=== PATIENT | female | born 1955 | race Caucasian/White ===

== ENCOUNTER 2017-01-21 16:08 | Inpatient (IN) | payer MEDICAID, MEDICARE ==
[~2017-01-21] VITALS: Ht 165.1 cm; Wt 69.5 kg
[2017-01-21 16:49] LABS: BASOPHIL % 0.4 % (0.0-0.2); EOSINOPHIL # 0.2 10^3/uL (0.0-0.2); LYMPHOCYTES # 1.7 10^3/uL (1.0-4.8); LYMPHOCYTES % 20.5 % (24.0-44.0); MEAN CELL HGB 30.7 pg (26-34); MEAN CELL HGB CONCENTRATION 32.8 g/dL (33-37); MEAN CORP VOLUME 93.4 fL (78-100); MEAN PLATELET VOLUME 10.2 fL (7.8-11.0); MONOCYTES # 0.7 10^3/uL (0.3-0.8); NEUTROPHIL # 5.6 10^3/uL (1.8-7.7); RED CELL DISTRIBUTION WIDTH 14.9 % (11.5-14.5); WHITE BLOOD CELL 8.2 10^3/uL (4.5-11.0)
--- NOTE | 2017-01-21 16:57 | DIREP ---
PROCEDURE:CHEST 1 VIEW COMPARISON:None. INDICATIONS:Medical clearance FINDINGS: LUNGS/PLEURA:Shallow inspiration with crowding of the pulmonary vascular markings. No focal consolidation. No effusions. VASCULATURE:Normal. Unremarkable pulmonary vasculature. CARDIAC:Normal. No cardiac silhouette abnormality or cardiomegaly. MEDIASTINUM:Normal. No visible mass or adenopathy. BONES:Normal. No fracture or visible bony lesion. OTHER:Negative. CONCLUSION:No acute cardiopulmonary abnormalities. Dictated by: Camden Gutierrez M.D. on 01/21/2017 at 04:56 PM
--- NOTE | 2017-01-21 17:06 | ER.PDOC ---
General Chief Complaint: Medical Clearance Stated Complaint: MED CLEAR Time seen by MD: 17:05 Source: senior living records History of Present Illness Initial Comments Medical clearance to go to the [place] for schizophrenia Severity: moderate Associated Symptoms: Angry, Paranoid Past Medical History Medical History: high cholesterol, hypertension, thyroid disease, other Social History Smoking: less than 1 pack/day Alcohol Use: none Drug Use: none Review of Systems Constitutional: no symptoms reported Respiratory: no symptoms reported Cardiovascular: no symptoms reported Gastrointestinal: no symptoms reported Psychiatric/Neurological: see HPI All Other Systems: Reviewed and Negative Physical Exam General Appearance: No acute distress, Alert Neck: Non-Tender, Full Range of Motion, Supple, Normal Inspection Respiratory: chest non-tender, lungs clear, normal breath sounds, no respiratory distress, no accessory muscle use Cardiovascular: Normal Peripheral Pulses, Regular Rate, Rhythm, No Edema, No Gallop, No JVD, No Murmur Gastrointestinal: Normal Bowel Sounds, No Organomegaly, No Pulsatile Mass, Non Tender, Soft Extremities: Non-Tender, Normal Range of Motion, No Evidence of Trauma, No Edema Neurological/Psychiatric: Alert, Normal Mood/Affect Appearance/Memory/Insight: Appropriate Appearance, Appropriate Insight Behavior/Eye Contact/Speech: Cooperative Thoughts/Hallucinations: Paranoid Results/Orders Results/Orders Laboratory Tests Test 01/21/17 16:40 01/21/17 17:30 White Blood Count 8.2 10^3/uL (4.5-11.0) Red Blood Count 4.24 10^6/uL (4.00-5.20) Hemoglobin 13.0 g/dL (12.0-15.0) Hematocrit 39.6 % (36.0-46.0) Mean Corpuscular Volume 93.4 fL (78-100) Mean Corpuscular Hemoglobin 30.7 pg (26-34) Mean Corpuscular Hemoglobin Concent 32.8 g/dL (33-37) Red Cell Distribution Width 14.9 % (11.5-14.5) Platelet Count 250 10^3/uL (150-400) Mean Platelet Volume 10.2 fL (7.8-11.0) Neutrophils (%) (Auto) 68.0 % (41.0-85.0) Lymphocytes (%) (Auto) 20.5 % (24.0-44.0) Monocytes (%) (Auto) 9.0 % (5.0-12.0) Neutrophils # (Auto) 5.6 10^3/uL (1.8-7.7) Lymphocytes # (Auto) 1.7 10^3/uL (1.0-4.8) Monocytes # (Auto) 0.7 10^3/uL (0.3-0.8) Absolute Immature Granulocyte (auto 0.01 10^3 u/L (0-2) Eosinophils % 2.0 % (0.0-5.0) Basophils % 0.4 % (0.0-0.2) Basophils # 0.0 10^3/uL (0.0-0.1) Eosinophil Count 0.2 10^3/uL (0.0-0.2) Prothrombin Time 9.7 SEC (9.8-11.9) Prothromb Time International Ratio 0.9 Activated Partial Thromboplast Time 25.5 SEC (24.67-30.72) Sodium Level 142 mmol/L (132-145) Potassium Level 3.8 mmol/L (3.6-5.2) Chloride Level 105.0 mmol/L (96-109) Carbon Dioxide Level 24.9 mmol/L (20.0-32) Anion Gap 15.9 Blood Urea Nitrogen 11 mg/dL (7-18) Creatinine 1.23 mg/dL (0.59-1.40) Estimated GFR () 53.7 (>/=60) BUN/Creatinine Ratio 8.0 Glucose Level 94 mg/dL (70-110) Hemoglobin A1c 5.3 % (4.2-6.2) Calcium Level 9.4 mg/dL (8.4-10.5) Total Bilirubin 0.3 mg/dL (0.2-1.0) Aspartate Amino Transf (AST/SGOT) 15 U/L (0-35) Alanine Aminotransferase (ALT/SGPT) 13 U/L (12-78) Alkaline Phosphatase 71 U/L (50-136) Total Creatine Kinase 103 U/L (26-192) Creatine Kinase MB 0.6 ng/mL (0.5-3.6) Troponin I < 0.02 ng/mL (0.00-0.05) C-Reactive Protein 0.08 mg/dL (0.00-5.00) Pro-B-Type Natriuretic Peptide 29 pg/mL (0-125) Total Protein 7.8 g/dL (6.4-8.2) Albumin 4.2 g/dL (3.4-5.0) Globulin 3.6 Triglycerides Level 208 mg/dL (20-200) Cholesterol Level 280 mg/dL (120-240) LDL Cholesterol, Calculated 198.4 VLDL Cholesterol 41.6 HDL Cholesterol 40 mg/dL (32-96) Cholesterol Ratio (LDL/HDL) 4.9 Cholesterol/HDL Ratio [id number] Thyroid Stimulating Hormone (TSH) 76.880 mIU/mL (0.358-3.740) Valproic Acid (Depakene) Level < 3 ug/mL (50-100) [place] Level < 0.20 mmol/L (0.6-1.2) Percent Immature Gran (Cell Imm) 0.10 % (0.00-0.50) Urine Collection Type VOID Urine Color YELLOW (YELLOW) Urine Appearance CLEAR (CLEAR) Urine Bilirubin NEGATIVE MG/DL (NEGATIVE) Urine Ketones NEGATIVE (NEGATIVE) Urine Specific [place] 1.010 (1.005-1.035) Urine pH 6.5 (5.0-6.0) Urine Protein NEGATIVE (NEGATIVE) Urine Urobilinogen NORMAL (NEGATIVE) Urine Nitrate NEGATIVE (NEGATIVE) Urine Leukocyte Esterase 25 /uL TRACE (NEGATIVE) Urine Blood NEGATIVE (NEGATIVE) Urine RBC 0-2 RBC/HPF (NONE SEEN) Urine WBC 0-2 WBC/HPF (0-2) Urine Squamous Epithelial Cells FEW #/HPF (FEW) Urine Bacteria NONE SEEN (NONE SEEN) Urine Glucose NORMAL (NEGATIVE) Opiates Screen NEGATIVE (NEGATIVE) Barbiturate Screen NEGATIVE (NEGATIVE) Urine Tricyclic Antidepressants NEGATIVE (NEGATIVE) Phencyclidine (PCP) Screen NEGATIVE (NEGATIVE) Amphetamines Screen NEGATIVE (NEGATIVE) Benzodiazepines Screen NEGATIVE (NEGATIVE) Cocaine Screen NEGATIVE (NEGATIVE) Ur Tetrahydrocannabinol (THC) Scrn NEGATIVE (NEGATIVE) EKG/XRAY/CT/US EKG: NSR XRAY: chest (Nothing acute) Departure Time of Disposition: 18:21 Disposition: 09 ADMITTED INPATIENT Impression: Primary Impression: Hypothyroidism Qualified Codes: E03.9 - Hypothyroidism, unspecified Additional Impression: Schizophrenia, acute Condition: Stable Referrals: JOSE MARTIN MD (PCP) PRIMARY CARE PROVIDER Comments Admitted to Dr. Ramy DE JESUS,MARYSOL Infante MD Jan 21, 2017 17:06
[2017-01-21 17:40] LABS: BILIRUBIN,URINE NEGATIVE (NEGATIVE); UROBILINOGEN,URINE NORMAL (NEGATIVE)
[2017-01-21 17:54] LABS: ALANINE AMINOTRANSFERASE 13 U/L (12-78); ALKALINE PHOSPHATASE 71 U/L (50-136); ASPARTATE AMINO TRANSFERASE 15 U/L (0-35); CALCIUM 9.4 mg/dL (8.4-10.5); CARBON DIOXIDE 24.9 mmol/L (20.0-32); CHOLESTEROL 280 mg/dL (120-240); GLUCOSE 94 mg/dL (70-110); HDL CHOLESTEROL 40 mg/dL (32-96)
[2017-01-21 17:56] LABS: UR BENZODIAZEPINE QUAL NEGATIVE (NEGATIVE); UR COCAINE QUAL NEGATIVE (NEGATIVE)
[2017-01-21 17:57] LABS: APPEARANCE,URINE CLEAR (CLEAR); UA COLOR YELLOW (YELLOW); WBC,URINE 0-2 WBC/HPF (0-2)
--- NOTE | 2017-01-21 18:18 | NUR ---
DR GARCÍA VILLELAA ON PHONE WITH DR MARIANO
--- NOTE | 2017-01-21 18:23 | PRM.ACF1 ---
Date and Time Date and Time Time: 18:22 Admission Criteria Forms PSYCHIATRIC DISORDERS Clinical Indications for Inpatient Care (Place 'X' for any and all applicable criteria): Ongoing inpatient care may be needed for 1 or more of the following(1)(2)(3)(4)( 6)(7)(8): [ x]I. Danger to self or others not manageable at lower level of care. [ ]II. Grave disability (eg, inability to perform self care necessary at lower level of care) [ ]III. Agitation or inappropriate behavior interfering with care for primary condition (eg, attempting to discontinue lines or drains prematurely, unable to cooperate with respiratory care) [ ]IV. Severe disability or disorder indicated by ALL of the following: [ ]a) Severe behavioral health disorder-related symptoms or condition indicated by 1 or more of the following: [ ]i) Severe problem with cognition, memory, judgment, or impulse control [ ]ii) Severe clinical manifestations (eg, hallucinations, delusions, other acute psychotic symptoms, nanette, extreme agitation or anxiety) [ ]b) Patient management at lower level of care is not feasible until acute intervention or modification is initiated. Extended stay beyond goal length of stay for the primary condition may be needed untilALLof the following are present(1)(2)(3)(4)722)(23): [ ]a) Danger to self or others is absent or manageable at lower level of care [ ]b) Behavior crisis management, including physical or chemical restraints, is required and is not available at a lower level of care. [ ]c) Behavioral symptoms (e.g., agitation, somnolence, inappropriate behavior) are present, and are not manageable at a lower level of care. [ ]d) Patient cannot understand follow-up treatment and crisis plan. [ ]e) Provider and supports are sufficiently available at lower level of care. [ ]f) Patient can participate (e.g., verify absence of plan for harm) and is in needed of monitoring. The original [facility] [email or web address] content created by [facility] has been revised. The portions of the content which have been revised are identified through the use of italic text, and [facility] has neither reviewed nor approved the modified material. All other unmodified content is copyright [facility]. Please see references footnoted in the original [facility] edition 2014 MARYSOL DE JESUS MD Jan 21, 2017 18:23
[2017-01-21] MEDS ORDERED: LEVO88TA2 PO (18:38)
[2017-01-21] MEDS ORDERED: LISI-414 PO (18:38)
[2017-01-21] MEDS ORDERED: PRAV40TA2 PO (18:38)
[2017-01-21] MEDS ORDERED: PALI117D IM (18:38)
[2017-01-21] MEDS ORDERED: BENZ0.5T PO (18:38)
--- NOTE | 2017-01-21 18:40 | NUR ---
PLAN OF CARE PT RESTING QUIETLY, RESP EVEN AND UNLABORED, SKIN PINK WARM AND DRY. DENIES ANY CONCERNS. DECLINED OFFER OF SOMETHING TO DRINK.
--- NOTE | 2017-01-21 19:00 | NUR ---
ADMISSION PT ADMITTED VIA WC FROM ER. REPORT RCVD FROM JENNIFER CHOI. PT AMBULATED TO BED. STEADY BALANCE/GAIT NOTED. PT GIVEN A HOSPITAL GOWN AND INSTR. TO CHANGE. PT BECAME VERY AGGRESSIVE AND DEMONSTRATED MARKED MOVEMENTS. PT REMOVED SHIRT, AND PUT GOWN ON. PT REFUSED TO REMOVE BRA OR JEANS. PT PLACED IN BED, VS OBTAINED. VSS STABLE. PT REFUSES TO ANSWER ANY QUESTIONS. ANGRY/DEPRESSED AFFECT NOTED. PT WILL FOLLOW DIRECTIONS IN AN ANGRY MANNER, SUCH FORCIBLY THRUSTING HER ARM OUT WHEN ASKED IF I COULD TAKE HER BP. PT INSTR. TO LIE BACK IN BED, THROWS HERSELF BACK IN A FRUSTRATED MANNER. BED IN LOW LOCKED POSITION, SIDE RAILS UP X2, CALL LIGHT WITHIN REACH.
[2017-01-21 19:35] VITALS: BP 152/94
--- NOTE | 2017-01-22 01:26 | NUR ---
BSC UP TO VOID. VOIDED W/O DIFFICULTY. URINE YELLOW/STRONG ODOR. ICE WATER GIVEN. PT BACK TO BED IN SUP[place] POSITION. DENIES ANY NEEDS.
[2017-01-22 01:47] VITALS: BP 125/63
--- NOTE | 2017-01-22 05:19 | NUR ---
REFUSAL PT REFUSES TO HAVE VS TAKEN. PT STATES "GET OUT" TO ANY QUESTIONS ASKED. WILL ATTEMPT AT A LATER TIME.
--- NOTE | 2017-01-22 06:40 | NUR ---
REPORT GIVEN TO ONCOMING SHIFT
--- NOTE | 2017-01-22 06:40 | NUR ---
REPORT RECEIVED REPORT REVIEWED EMR ASSUMED CARE OF PT
--- NOTE | 2017-01-22 07:45 | NUR ---
BATHROOM PATIENT UP TO BEDSIDE TOILET BY SELF. STEADY GAIT NOTED AMBULATED TO SINK WITH STEADY GAIT TO WASH HANDS BREAKFAST TRAY PROVIDED AT THIS TIME, PATIENT SAT ON THE SIDE OF THE BED TO EAT DENIES FURTHER NEEDS. CALL LIGHT IN REACH PATIENT IN CLOSE PROXIMITY TO NURSES STATION
--- NOTE | 2017-01-22 08:15 | NUR ---
MEDR ROOM OBTAINED AT THIS TIME, 341
--- NOTE | 2017-01-22 08:34 | NUR ---
STATUS PATIENT HAS NO MEDICATIONS ORDERED PATIENT HAS NO IV DR IS AWARE, NO NEW ORDERS RECEIVED AT THIS TIME.
--- NOTE | 2017-01-22 09:50 | NUR ---
ARRIVED ON UNIT PT ARRIVED ON UNIT VIA WHEELCHAIR. PT TRANSFERRED TO BED INDEPENDENTLY. THIS NURSE OBTAINED WATER PITCHER FOR PT. ORIENTED TO ROOM, CALL LIGHT, TV AND BED CONTROLS. PT DENIES ANY NEEDS AT THIS TIME. CALL LIGHT IN REACH. WILL CONT TO MONITOR.
--- NOTE | 2017-01-22 09:51 | NUR ---
TRANSFER TO [facility] VIA WHEELCHAIR ON RA DENIES PAIN OR DISCOMFORT REPORT GIVEN TO STEPH COHN NO QUESTIONS OR CONCERNS AT THIS TIME
[2017-01-22] MEDS ORDERED: SYNTHROID PO STA (09:53)
--- NOTE | 2017-01-22 09:55 | PCM.HP ---
History of Present Illness Reason for Visit: Behavior disturbance History of Present Illness Found to have highly elevated TSH and did not medically clear for the dionna lewis. Travel Hx EBOLA RISK:Travel to/contact w: No Is pt experiencing any Ebola s: No Review of Systems Allergies: Coded Allergies: No Known Allergies (Unverified , 01/21/17) Scheduled Benztropine Mesylate (Benztropine Mesylate), 0.5 MG PO BID, (Reported) Levothyroxine Sodium (Synthroid), 88 MCG PO DAILY, (Reported) Lisinopril (Lisinopril), 5 MG PO DAILY, (Reported) Paliperidone Palmitate (Invega Sustenna), 117 MG IM .monthly, (Reported) Pravastatin Sodium (Pravastatin Sodium), 40 MG PO HS, (Reported) VTE VTE Risk Total Score: 2 VTE Risk Score VTE Risk: Score 0-1 = Low Risk (Aggressive mobilization; early ambulation; no VTE prophylaxis required) Score 2: Moderate Risk (Intermittent/Pneumatic Compression Device OR Lovenox/Heparin/Coumadin) Score 3-4: High Risk (Intermittent/Pneumatic Compression Device AND Lovenox/Heparin/Coumadin) Score > or =5: Highest Risk (Intermittent/Pneumatic Compression Device AND Lovenox/Heparin/Coumadin) VTE VTE Present on Admission: No Currently receiving anticoagul: No VTE Risk Total Score: 2 Exam Vital Signs Vital Signs Date Time Temp Pulse Resp B/P (MAP) Pulse Ox O2 Delivery O2 Flow Rate FiO2 01/22/17 08:23 Room Air 01/22/17 01:47 65 18 125/63 (83) 96 01/21/17 19:35 98.2 Assessment/Plan Assessment/Plan Problems: (1) Hypothyroidism Permanent Comment: Start her on synthroid 100 mcg daily - Monitor her clinically in the ICU Last Edited By: Karina Mccann MD on Dec 09:55 Status: Acute ICD Code: E03.9 - Hypothyroidism, unspecified SNOMED: 25436907 (2) Schizophrenia, acute Status: Acute ICD Code: F20.9 - Schizophrenia, unspecified SNOMED: 60607348 Patient History: Problem Qualifiers (1) Hypothyroidism: Hypothyroidism type: unspecified Qualified Codes: E03.9 - Hypothyroidism, unspecified KARINA MCCANN MD Jan 22, 2017 09:55
[2017-01-22] MEDS ORDERED: COGENTIN ONE (10:19)
[2017-01-22] MEDS ORDERED: SYNTHROID ONE (10:20)
[2017-01-22] MEDS: COGENTIN PO SCH ×2 (10:23→10:31)
--- NOTE | 2017-01-22 10:30 | NUR ---
MEDICATION PT TOOK LEVOTHYROXINE BUT REFUSED THE CONGENTIN.
--- NOTE | 2017-01-22 14:34 | NUR ---
STATUS THIS NURSE CHECKED IN ON PT AND PT WITH HANDS COVERING FACE. WHEN THIS NURSE ASKED PT IF SHE WAS OK AND IF ANYTHING I COULD DO, PT STATED SHE NEEDED ME TO GO GET HER SOME CIGARETTES. THIS NURSE EXPLAINED SMOKING POLICY AT THIS HOSPITAL BUT EXPLAINED TO PT THAT A NICOTINE PATCH COULD BE ORDERED FOR HER. PT STATED SHE DID NOT WANT A PATCH. OBTAINED FOR PT AND PT CONTINUES TO SIT IN CHAIR AND STARING AT FLOOR. CALL LIGHT IN REACH. WILL CONT TO MONITOR.
[2017-01-22 16:00] VITALS: BP 126/75
--- NOTE | 2017-01-22 19:03 | NUR ---
REPORT REPORT RECEIVED CARE ASSUMED
[2017-01-22 20:20] VITALS: BP 109/63
--- NOTE | 2017-01-22 20:45 | NUR ---
AMBULATING PT AMBULATING IN [place] WITHOUT NEED OF ASSIST, DENIES NEED OR PAIN, STATES SHE WOULD LIKE TO LEAVE AT THIS TIME, ABLE TO REDIRECT AT THIS TIME, FLAT AFFECT NOTED
[2017-01-22] MEDS ORDERED: ZOCOR PO SCH (21:00)
[2017-01-23 00:30] VITALS: BP 118/62
--- NOTE | 2017-01-23 02:00 | NUR ---
AMBULATING PT AMBULATING IN [place] WITHOUT NEED OF ASSIST, DENIES NEED OR PAIN, STATES SHE DOES NOT UNDERSTAND WHY HER DR WANTS HER TO STAY IN THIS HOTEL, REORIENTED AT THIS TIME, WILL NEED REINFORCED,
[2017-01-23 05:09] VITALS: BP 111/62
[2017-01-23] MEDS ORDERED: SYNTHROID PO SCH (06:30)
--- NOTE | 2017-01-23 07:11 | NUR ---
REPORT REPORT GIVEN CARE RELINQUISHED
[2017-01-23 07:40] VITALS: BP 130/78
[2017-01-23] MEDS ORDERED: ZESTRIL ONE (07:59)
[2017-01-23] MEDS: COGENTIN PO SCH (08:05)
--- NOTE | 2017-01-23 08:06 | NUR ---
medications AT BEDSIDE WITH MORNING MEDS AND PT REFUSES TO TAKE ANY MEDICATIONS THIS MORNING.
--- NOTE | 2017-01-23 08:17 | PRM.DC ---
Discharge Summary Date of Arrival on Unit: Jan 21, 2017 Reason for Visit: Behavior disturbance and psychosis Scheduled Benztropine Mesylate (Benztropine Mesylate), 0.5 MG PO BID, (Reported) Levothyroxine Sodium (Synthroid), 88 MCG PO DAILY, (Reported) Lisinopril (Lisinopril), 5 MG PO DAILY, (Reported) Paliperidone Palmitate (Invega Sustenna), 117 MG IM .monthly, (Reported) Pravastatin Sodium (Pravastatin Sodium), 40 MG PO HS, (Reported) Course Blood Pressure Systolic: 130 Blood Pressure Diastolic: 78 Blood Pressure Mean: 95 Plan Problems: (1) Schizophrenia, acute Status: Acute ICD Code: F20.9 - Schizophrenia, unspecified SNOMED: [id number] (2) Hypothyroidism Permanent Comment: Start her on synthroid 100 mcg daily - Monitor her clinically in the ICU Last Edited By: Karina Mccann MD on Dec 09:55 Status: Acute ICD Code: E03.9 - Hypothyroidism, unspecified SNOMED: [id number] Discharge Date: Jan 23, 2017 Discharge Disposition: Stable Problem Qualifiers (1) Hypothyroidism: Hypothyroidism type: unspecified Qualified Codes: E03.9 - Hypothyroidism, unspecified KARINA MCCANN MD Jan 23, 2017 08:17
[2017-01-23] MEDS ORDERED: ZESTRIL PO SCH (09:00)
[2017-01-23 10:29] VITALS: BP 130/78
== END 2017-01-23 10:38 | DRG 645 ==
LOC: ER 16:08 → ICU 18:26 → MS 01-22 10:00
PROVIDERS: ADMIT Internal Medicine; ATTEND Internal Medicine
DX: E03.9 Hypothyroidism, unspecified (principal); F20.9 Schizophrenia, unspecified; I10 Essential (primary) hypertension; Z79.899 Other long term (current) drug therapy; E78.00 Pure hypercholesterolemia, unspecified; F29 Unspecified psychosis not due to a substance or known physiological condition
CPT/HCPCS: 36415; 71010; 80053; 80061; 80164; 80178; 80307; 81000; 82550; 82553; 82607; 83036; 83880; 84432; 84439; 84443; 84481; 84484; 85025; 85610; 85730; 86140; 86376; 93005; 99285

== ENCOUNTER 2017-01-23 10:55 | Inpatient (IN) | payer MEDICARE ==
[~2017-01-23] VITALS: Ht 165.1 cm; Wt 70.4 kg
--- NOTE | 2017-01-23 10:50 | NUR ---
Admit Pt ambulated onto unit alongside Juan Diego Black RN. No s/s of distress noted. Pt appears to be agitated, states, "I don't need to be here. Take me back to my room upstairs. Get me out of here!" Pt refuses to have admitting VS obtained, refuses to answer assessment questions, refusing to sign admit paperwork. Pt will not allow nursing staff to take belongings in bag for check-in, refuses to go to day room or pt room. TPC worker present and sitting in front of nurse's station, pt approached worker and stated, "I'm not going with you you fucking bitch! What the hell is this bitch doing here? I'm not going with her." Pt was redirected, informed that TPC worker was not here to see her. States again, "I need to get out of here. I'm not staying here! Get me out!" Standing in ferro with belongings, offered fluids and snack, accepts a soda.
[~2017-01-23 10:55] MED LIST: BENZ0.5T PO; LEVO88TA2 PO; LISI-414 PO; PALI117D IM; PRAV40TA2 PO
--- NOTE | 2017-01-23 11:10 | NUR ---
Dr. Ketan Aceves called and notified of pt arrival to unit and behaviors pt is exhibiting. Received new orders for scheduled Risperdal and Celexa, and PRN Haldol and Ativan, see EMAR.
[2017-01-23] MEDS ORDERED: HALDOL IM PRN (12:30)
[2017-01-23] MEDS ORDERED: HALDOL PO PRN (12:30)
[2017-01-23] MEDS ORDERED: ATIVAN PO PRN (12:30)
[2017-01-23] MEDS: RISPERDAL PO SCH ×4 (12:30→21:00)
[2017-01-23] MEDS ORDERED: ATIVAN IM PRN (12:30)
[2017-01-23 12:40] VITALS: BP 110/67
--- NOTE | 2017-01-23 12:58 | NUR ---
RISPERDAL PT REFUSED RISPERDAL 1MG. RN EXPLAINED TO PT THAT IF COOPERATIVE SHE LEAVES FASTER WHEN PT SAID SHE WAS NOT STAYING AND WANTED DAUGHTER CALLED TO PICK HER UP. RN EXPLAINED SHE WAS ON COURT PAPERS AND COULD NOT LEAVE. PT SAID SHE DID NOT NEED COURT PAPERS SHE WAS NOT STAYING. RN EXPLAINED THAT SHE COULD LEAVE AT THIS TIME.
--- NOTE | 2017-01-23 12:59 | NUR ---
Delusions Pt reports she was angry and yelling [facility] jail d/t someone, either staff or resident, stealing her clothes, toiletries, etc. Became increasingly agitated, raising voice, got up from chair and walked down ferro and into room. Addendum: 01/23/17 at 1300 by STEPH Madera RN Amended: Links added.
--- NOTE | 2017-01-23 13:40 | NUR ---
Behaviors Pt is cooperative with some aspects of assessment @ this time, irritable affect. Pt sitting in chair across from nurse's station, is seen talking quietly. When asked who she was talking to, pt stated, "I'm just mumbling to myself."
--- NOTE | 2017-01-23 14:53 | NUR ---
BEHAVIOR PT IS IN DAYROOM SITTING IN CHAIR TALKING TO SELF OR TO SOMEONE THAT IS NOT THERE. TALKING ABOUT WHAT MAKES YOU THINK I BELONG HERE. I TOLD YOU I DON'T. OTHER OLIVA SITS QUIETLY. REFUSES OFFER OF ANYTHING TO DRINK OR TO EAT.
[2017-01-23] MEDS ORDERED: ZOCOR ONE (18:57)
[2017-01-23] MEDS ORDERED: COGENTIN ONE (18:57)
[2017-01-23 19:00] VITALS: BP 120/67
[2017-01-23] MEDS: ZOCOR PO SCH ×2 (20:59→21:00)
[2017-01-23] MEDS: COGENTIN PO SCH ×2 (20:59→21:00)
--- NOTE | 2017-01-23 21:11 | NUR ---
Medication pt is offered HS medication and explained each one and patient states she does not need cogentin, zocor, and will not take risperdal at all.RN notified of pt refusing HS medication
--- NOTE | 2017-01-23 21:15 | NUR ---
BEHAVIORS RECEIVED IN REPORT FROM ARUN Celis RN THAT IF PT. DOESN'T TAKE HER MEDICATION CONTINUE TO OFFER THEM.. PT. REFUSED MEDICATION AFTER THEY WERE OFFERED SEVERAL TIMES.
[2017-01-24] MEDS ORDERED: SYNTHROID ONE (04:17)
[2017-01-24] MEDS: SYNTHROID PO SCH (06:22)
--- NOTE | 2017-01-24 06:26 | NUR ---
Medication pt awaken and offered AM medication, levothyroxine 88mcg pt states she does not take that milligram and refuses to take medication. RN notified of pt refusing medication
--- NOTE | 2017-01-24 06:39 | NUR ---
MEDICATION PT. REFUSED LEVOTHYROXINE THIS AM. REPORT WILL BE GIVEN TO ONCOMING SHIFT.
[2017-01-24 07:57] VITALS: BP 118/71
[2017-01-24] MEDS: CELEXA PO SCH (08:35)
[2017-01-24] MEDS: COGENTIN PO SCH ×2 (08:35→20:17)
[2017-01-24] MEDS: ZESTRIL PO SCH (08:36)
[2017-01-24] MEDS: RISPERDAL PO SCH ×2 (08:36→20:18)
--- NOTE | 2017-01-24 10:02 | NUR ---
Status Pt is alert and oriented x 3. Has flat affect, uncooperative @ times. Pt denies depressive symptoms, is irritable @ times. Denies hallucinations, but is frequently seen talking to self quietly. Refuses medications and refuses to participate in group activities. Sits in day room, but isolates from staff and peers.
--- NOTE | 2017-01-24 15:18 | NUR ---
GMAS: PT REFUSED TO PARTICIPATE IN ASSESSMENT. WILL TRY AGAIN AT A LATER DATE. Addendum: 01/24/17 at 1519 by Beulah Doan, LENNY, SPECIAL NEEDS TUTOR SW Amended: Links added.
--- NOTE | 2017-01-24 15:19 | NUR ---
MMSE: PT REFUSED TO PARTICIPATE IN ASSESSMENT. PT INVOLUNTARY. Addendum: 01/24/17 at 1520 by Beulah Doan, LENNY, HAND COLLATOR SW Amended: Links added.
--- NOTE | 2017-01-24 15:28 | NUR ---
SYMPTOMATOLOGY EVAL: PT PRESENTED TO THE ER FROM [facility] FOR MEDICAL CLEARANCE DUE TO AGGRESSIVE BEHAVIORS, NONCOMPLIANCE WITH MEDICATIONS OR CARE AND HALLUCINATIONS. FACILITY STAFF REPORTS THAT PT HAS REFUSED MEDICATIONS AND CARE FOR ABOUT TWO WEEKS. PT IS VERBALLY AGGRESSIVE TOWARD STAFF BY SCREAMING AND CURSING WELL YELLING AT THE [place] IN THE FACILITY. PT HAS BEEN INCREASINGLY DISRUPTIVE AND IS HAVING VISUAL HALLUCINATIONS. PT WILL RETURN TO [facility] UPON DISCHARGE. RECOMMENDED INPATIENT TREATMENT ON THE [facility] [place] ON AN INVOLUNTARY STATUS AT THIS TIME. Addendum: 01/24/17 at 1532 by Beulah Doan LMSW, GUERDA APONTE Amended: Links added.
--- NOTE | 2017-01-24 17:00 | NUR ---
VSEE Pt was seen by Dr. Aceves via telemed, no changes @ this time. Pt became agitated during visit and left treatment room, slammed door, and went to sit in day room.
[2017-01-24 19:21] VITALS: BP 105/60
[2017-01-24] MEDS: ZOCOR PO SCH (20:18)
--- NOTE | 2017-01-24 20:18 | NUR ---
HS MEDICATIONS PT REFUSED HS MEDICATIONS. SAID NO NOT TAKING. WAS NOT UGLY ABOUT IT OUT ANGRY ABOUT IT. JUST SAID NO. REPORTED TO RN.
[2017-01-25] MEDS: SYNTHROID PO SCH (05:31)
--- NOTE | 2017-01-25 05:39 | NUR ---
THYROID MEDICATION PT REFUSED THYROID MEDICATION WHEN OFFERED TO HER. PT STATED THAT IT DOES NOT LOOK LIKE HER MEDICATION SHE TAKES. ATTEMPT TO EXPLAIN TO PT THAT IT IS THE SAME MEDICATION IT JUST MAY BE A DIFFERENT COLOR DUE TO A DIFFERENT COMPANY MAKING IT OR JUST DIFFERENT NAME BRAND. PT CONTINUED TO SAY NO. DID NOT GET ANGRY OR UGLY ABOUT IT. JUST POLITELY SAID NO. REPORTED TO RN.
[2017-01-25 07:45] VITALS: BP 119/63
[2017-01-25] MEDS: ZESTRIL PO SCH (09:00)
[2017-01-25] MEDS: COGENTIN PO SCH ×2 (09:00→20:25)
[2017-01-25] MEDS: RISPERDAL PO SCH ×2 (09:00→20:26)
[2017-01-25] MEDS: CELEXA PO SCH (09:00)
--- NOTE | 2017-01-25 17:28 | NUR ---
BEHAVIOR NOTE: Patient has been quiet and would not participate in groups today. No obvious hallucinations noted. No aggressive behavior. Patient continues to refuse all medications.
[2017-01-25 19:04] VITALS: BP 109/56
[2017-01-25] MEDS: ZOCOR PO SCH (20:26)
--- NOTE | 2017-01-25 20:26 | NUR ---
HS MEDS PT REFUSED HS MEDICATIONS. DID NOT GET ANGRY OR UPSET. JUST SAID NO. RN AWARE.
[2017-01-26] MEDS: SYNTHROID PO SCH (04:53)
--- NOTE | 2017-01-26 04:54 | NUR ---
SYNTHROID PT CONTINUES TO REFUSE ALL MEDS. WAS UP TO BATHROOM AND ASKED IF SHE WANTED HER SYNTHROID THIS AM AND SHE STATED NO.
[2017-01-26 07:33] VITALS: BP 110/68
[2017-01-26] MEDS: ZESTRIL PO SCH (07:37)
[2017-01-26] MEDS: COGENTIN PO SCH ×2 (07:37→20:58)
[2017-01-26] MEDS: RISPERDAL PO SCH ×2 (07:37→20:58)
[2017-01-26] MEDS: CELEXA PO SCH (07:37)
--- NOTE | 2017-01-26 14:16 | NUR ---
pt status pt has been cooperative other than not taking medications. Pt watching tv with other pts. will answer questions when asked. pt sitting quietly.
[2017-01-26 19:09] VITALS: BP 108/63
[2017-01-26 19:20] VITALS: BP 108/63
--- NOTE | 2017-01-26 20:46 | PSYCH ---
DATE OF SERVICE: 01/24/2017 ADMISSION PSYCHIATRIC EVALUATION TIME: 3:00-4:00. CHIEF COMPLAINT: Psychotic, agitated, refusing medications, food and water. HISTORY OF PRESENT ILLNESS: The patient is an elderly female admitted from a local custodial and was profoundly psychotic. She carries a diagnosis of schizophrenia. She had active auditory and visual hallucinations which were continuous, agitation, lability and threatening behavior, ideas of reference, thought broadcasting and insertion, paranoia, delusional thoughts, some depressive symptoms as well with depressed mood, disturbed sleep, appetite, energy and concentration. It should be noted this patient is refusing to take any medications including the medicines quite necessary for her hypothyroidism. No food or water intake because she feels these items are poisoned. Quite sick. She is being observed closely and she is being encouraged to participate in groups, therapies and activities. PAST PSYCHIATRIC HISTORY: Significant for schizophrenia for which she is disabled. PAST MEDICAL HISTORY: 1. Hypothyroidism. 2. Hypertension. 3. Hyperlipidemia. ALLERGIES: NO KNOWN DRUG ALLERGIES. FAMILY PSYCHIATRIC HISTORY: None reported at this time. SOCIAL HISTORY: The patient was raised in [place] , children she reports 2, living in a custodial, no employment. She is disabled due to her psychiatric illness. She does smoke and denies use of alcohol. OBJECTIVE: VITAL SIGNS: Temperature 98.3, pulse 70, respirations 18, oxygen saturation 94%, blood pressure 110/71. REVIEW OF SYSTEMS: HEENT: Normal. RESPIRATORY: No shortness of breath, coughing or wheezing. CARDIAC: No chest pain or palpitations. GASTROINTESTINAL: No nausea, vomiting, diarrhea or constipation. GENITOURINARY: No difficulty urinating. MUSCULOSKELETAL: No muscle pain. EXTREMITIES: No swelling or edema. NEUROLOGIC: Normal. ENDOCRINE: Normal. MENTAL STATUS EXAMINATION: Reveals an alert, angry, hostile, female with decreased psychomotor activity. Concentration and memory are intact. Speech and language are normal. Orientation is full. Intelligence is average. Mood assessed as severely depressed. Affect constricted. Insight and judgment are poor. Thought is illogical, positive delusional thought with auditory and visual hallucinations and paranoia. ASSESSMENT AND PLAN: DIAGNOSES: AXIS I: 1. Schizophrenia, paranoid in type with acute exacerbation. 2. Major depressive disorder. AXIS II: Deferred. AXIS III: Refer to past medical history. AXIS IV: Stress of mental illness. AXIS V: Current global assessment of functioning of 20. TREATMENT PLAN: 1. This patient was admitted per the court to the [facility] representing a danger to herself and others. 2. She is being observed closely. 3. She has been placed on medication, which she is refusing at this time including Cogentin 0.5 mg twice a day, Risperdal 1 mg twice a day, Celexa 10 mg a day including Synthroid for her severe hypothyroidism which she is refusing. 4. She is being encouraged to participate in groups, therapies and activities. 5. She will be discharged back to an outpatient setting when it is felt she no longer represents a clear danger to herself or other individuals. Yonny Aceves MD DR: JOHANNA/mallika JOB# [id number]
[2017-01-26] MEDS: ZOCOR PO SCH (20:58)
--- NOTE | 2017-01-26 21:02 | NUR ---
Medication pt refuses HS medication, RN Gustavo Denton is aware
[2017-01-27] MEDS: SYNTHROID PO SCH (05:53)
--- NOTE | 2017-01-27 05:53 | NUR ---
Medication pt refuses a.m. medication. STEPH smith
[2017-01-27] MEDS: CELEXA PO SCH (07:41)
[2017-01-27] MEDS: COGENTIN PO SCH ×2 (07:42→20:22)
[2017-01-27] MEDS: RISPERDAL PO SCH ×2 (07:42→20:23)
[2017-01-27] MEDS: ZESTRIL PO SCH (07:42)
[2017-01-27 07:52] VITALS: BP 104/67
[2017-01-27 18:02] VITALS: BP 94/58
[2017-01-27] MEDS: ZOCOR PO SCH (20:23)
--- NOTE | 2017-01-27 20:23 | NUR ---
Medication pt refused HS Liliana daily RN notified
--- NOTE | 2017-01-27 21:30 | NUR ---
BEHAVIORS PT. ORIENTED TIMES THREE,DENIES DEPRESSION,ANXIETY AND PAIN. DENIES HALLUCINATIONS. ATTENDED GROUP BUT DID NOT INITIATE INTERACTION BUT RESPONDED TO APPROACH.
[2017-01-28] MEDS: SYNTHROID PO SCH (05:46)
--- NOTE | 2017-01-28 05:46 | NUR ---
Medication pt refuses A.M.abimbola Ford RN notified
[2017-01-28 07:43] VITALS: BP 110/69
[2017-01-28] MEDS: ZESTRIL PO SCH (08:37)
[2017-01-28] MEDS: RISPERDAL PO SCH ×2 (08:37→21:00)
[2017-01-28] MEDS: COGENTIN PO SCH ×2 (08:37→21:00)
[2017-01-28] MEDS: CELEXA PO SCH (08:37)
--- NOTE | 2017-01-28 08:40 | NUR ---
AM MEDICATION PT REFUSED AM MEDICATIONS. PT WAS POLITE ABOUT REFUSAL. JUST SAID NO SHE WAS NOT TAKING MEDICATIONS THIS MORNING. ATTEMPTED TO EXPLAIN THAT PT WOULD NOT GET BETTER AND THAT THE SOONER SHE GETS BETTER THE SOONER SHE COULD LEAVE. PT JUST POLITELY SAID FINE. RN NOTIFIED.
--- NOTE | 2017-01-28 09:59 | PNH ---
DATE: 01/27/2017 PSYCHIATRIC PROGRESS NOTE TIME: 4:20-4:40. HISTORY OF PRESENT ILLNESS: This patient is an elderly female admitted from the prison with a diagnosis of schizophrenia acute with acute exacerbation. The patient admitted with auditory and visual hallucinations, delusional thought, agitation, lability, assaultiveness, thought broadcasting, thought insertion, ideas of reference, paranoia with clear delusional thought. Also, depressive symptoms with depressed mood, disturbed sleep, appetite, energy and concentration. The patient not consuming food, no fluid and refusing all medications including medications which would be very necessary for hypothyroidism. The patient remains quite symptomatic, psychotic, delusional at this time and is a candidate for ongoing hospitalization, may require that this patient go to [facility] if she continues to refuse all medications. OBJECTIVE: VITAL SIGNS: Blood pressure 104/67, pulse 68, respirations 18, temperature 98.2, oxygen saturation 94%. REVIEW OF SYSTEMS: HEENT: Normal. RESPIRATORY: No shortness of breath, coughing or wheezing. CARDIAC: No chest pain or palpitations. GASTROINTESTINAL: No nausea, vomiting, diarrhea or constipation. GENITOURINARY: No difficulty with urination. MUSCULOSKELETAL: No muscle pain. EXTREMITIES: No swelling or edema. NEUROLOGIC: Normal. ENDOCRINE: Normal. MENTAL STATUS EXAMINATION: Reveals an alert female. Decreased psychomotor activity. Concentration and memory intact. Speech and language are normal. Orientation is full. Intelligence is average. Mood assessed as depressed. Affect constricted. Insight and judgment are poor. Thought is illogical, positive delusional thought with active auditory and visual hallucinations. ASSESSMENT AND PLAN: DIAGNOSES: AXIS I: 1. Schizophrenia. 2. Major depressive disorder, severe. AXIS II: Deferred. AXIS III: Refer to past medical history. AXIS IV: Stress of mental illness. AXIS V: Current global assessment of functioning of 20. TREATMENT PLAN: 1. This patient was admitted involuntarily to [facility] representing a danger or risk to herself and others. 2. She has been placed on medication, which she is refusing at this point of Cogentin 0.5 twice a day, Risperdal 1 mg twice a day, Celexa 10 mg a day and Synthroid. 3. She is to participate in groups, therapies and activities which she is not doing at this point based on her level of psychosis. 4. She will be discharged back to a prison setting when it is felt she no longer represents a risk or danger to herself or others. 5. State hospitalization may be a possibility if the patient continues to refuse all medications. Yonny Aceves MD DR: JOHANNA/mallika JOB# [id number]
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
--- NOTE | 2017-01-28 13:16 | NUR ---
Status Pt is alert and oriented x 3, has flat but cooperative affect. Pt will sit in for group activities, but does not actively participate in group activities or initiate interaction, but does respond when approached. Denies depression, anxiety, suicide ideation, homicide ideation, paranoia, and hallucinations. Pt has been seen sitting in recliner and mumbling under her breath and smiling with eyes closed, unable to determine whether or not pt is having auditory hallucinations. No delusions exhibited @ this time. Pt continues to refuse all medications, Dr. Aceves and Dr. Mccann aware.
[2017-01-28 19:27] VITALS: BP 106/60
[2017-01-28] MEDS: ZOCOR PO SCH (21:00)
--- NOTE | 2017-01-28 21:21 | NUR ---
Medication pt refuses HS meds Bobbi RN is aware
--- NOTE | 2017-01-29 01:40 | PRM.ACF1 ---
Admission Criteria Forms PSYCHIATRIC DISORDERS Clinical Indications for Inpatient Care (Place 'X' for any and all applicable criteria): Ongoing inpatient care may be needed for 1 or more of the following(1)(2)(3)(4)( 6)(7)(8): [ ]I. Danger to self or others not manageable at lower level of care. [ ]II. Grave disability (eg, inability to perform self care necessary at lower level of care) [X]III. Agitation or inappropriate behavior interfering with care for primary condition (eg, attempting to discontinue lines or drains prematurely, unable to cooperate with respiratory care) [ ]IV. Severe disability or disorder indicated by ALL of the following: [ ]a) Severe behavioral health disorder-related symptoms or condition indicated by 1 or more of the following: [ ]i) Severe problem with cognition, memory, judgment, or impulse control [ ]ii) Severe clinical manifestations (eg, hallucinations, delusions, other acute psychotic symptoms, nanette, extreme agitation or anxiety) [ ]b) Patient management at lower level of care is not feasible until acute intervention or modification is initiated. Extended stay beyond goal length of stay for the primary condition may be needed untilALLof the following are present(1)(2)(3)(4)(722)(23): [ ]a) Danger to self or others is absent or manageable at lower level of care [ ]b) Behavior crisis management, including physical or chemical restraints, is required and is not available at a lower level of care. [ ]c) Behavioral symptoms (e.g., agitation, somnolence, inappropriate behavior) are present, and are not manageable at a lower level of care. [ ]d) Patient cannot understand follow-up treatment and crisis plan. [ ]e) Provider and supports are sufficiently available at lower level of care. [ ]f) Patient can participate (e.g., verify absence of plan for harm) and is in needed of monitoring. The original [facility] content created by [facility] [employer] has been revised. The portions of the content which have been revised are identified through the use of italic text, and [facility] [employer] has neither reviewed nor approved the modified material. All other unmodified content is copyright [facility] [employer]. Please see references footnoted in the original [facility] edition 2015 Is [facility]/Jason's added/comple: YES ANTONETTE SAAVEDRA CDS Jan 29, 2017 01:40
[2017-01-29] MEDS: SYNTHROID PO SCH (06:13)
--- NOTE | 2017-01-29 06:21 | NUR ---
A.M.Medication pt refuses a.m. medication and Bobbi CHOI is made aware.
[2017-01-29 07:26] VITALS: BP 95/65
[2017-01-29] MEDS: RISPERDAL PO SCH ×2 (09:00→19:52)
[2017-01-29] MEDS: COGENTIN PO SCH ×2 (09:00→19:51)
[2017-01-29] MEDS: ZESTRIL PO SCH (09:00)
[2017-01-29] MEDS: CELEXA PO SCH (09:00)
--- NOTE | 2017-01-29 09:15 | NUR ---
MEDICATIONS PT REFUSED AM MEDS THIS MORNING. RN AWARE.
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
--- NOTE | 2017-01-29 18:21 | NUR ---
BEHAVIOR NOTE: Patient continues to believe that she is not sick and that she does not need medication. She is refusing all medications and refusing showers
[2017-01-29 19:00] VITALS: BP 102/61
[2017-01-29] MEDS: ZOCOR PO SCH (19:52)
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
[2017-01-30] MEDS: SYNTHROID PO SCH (06:13)
[2017-01-30 07:45] VITALS: BP 112/76
[2017-01-30] MEDS: CELEXA PO SCH (08:04)
[2017-01-30] MEDS: ZESTRIL PO SCH (08:04)
[2017-01-30] MEDS: COGENTIN PO SCH ×2 (08:04→20:09)
[2017-01-30] MEDS: RISPERDAL PO SCH ×2 (08:04→20:10)
--- NOTE | 2017-01-30 17:05 | NUR ---
BEHAVIOR NOTE: Patient is not taking any medication and continues to believe that she is not sick and that she does not need medication. She has particpated in groups. She has been pleasant and has sat silently not initiating conversations. She has not been aggressive and there have not been any obvious hallucinations auditory or visual.
[2017-01-30 19:00] VITALS: BP 102/50
[2017-01-30] MEDS: ZOCOR PO SCH (20:10)
--- NOTE | 2017-01-31 00:56 | NUR ---
BEHAVIORS PT. ORIENTED TIMES THREE AND DENIES DEPRESSION,ANXIETY AND PAIN TONIGHT. NO AGGRESSION OR HALLUCINATIONS EXHIBITED. PT. REFUSED MEDICATIONS TONIGHT.
--- NOTE | 2017-01-31 02:59 | NUR ---
behaviors Pt. was observed talking to someone not there which sounded as if scolding someone.
[2017-01-31] MEDS: SYNTHROID PO SCH (06:28)
[2017-01-31 08:00] VITALS: BP 107/56
[2017-01-31] MEDS: RISPERDAL PO SCH ×2 (09:00→20:31)
[2017-01-31] MEDS: ZESTRIL PO SCH (09:00)
[2017-01-31] MEDS: CELEXA PO SCH (09:00)
[2017-01-31] MEDS: COGENTIN PO SCH ×2 (09:00→20:31)
--- NOTE | 2017-01-31 11:55 | NUR ---
Status Pt is alert and oriented x 3. Has flat, but pleasant affect. Does not initiate interaction, but does respond appropriately when approached. Will stay and sit in day room and participate in activities if approached, but otherwise does not speak to staff or other pts. Cont to refuse medications, is seen talking to self, but denies it when asked by staff. Otherwise, pt denies depressive symptoms, anxiety, suicidal ideation, and homicidal ideation.
--- NOTE | 2017-01-31 16:30 | NUR ---
VSEE Pt was seen by Dr. Aceves via telemed, no new orders received @ this time. Dr. Aceves spoke to pt regarding non-compliance with meds, and informed pt that she will be started on either Invega or Haldol Decanoate, pt became agitated and left treatment room. Sat in day room, tapping foot quickly, and biting bottom lip. No other behaviors noted @ this time.
[2017-01-31 19:44] VITALS: BP 107/61
[2017-01-31] MEDS: ZOCOR PO SCH (20:31)
--- NOTE | 2017-01-31 21:58 | NUR ---
Medication pt refuses her HS medication and goes to her room. Bobbi CHOI notified of pt refusing medication
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
--- NOTE | 2017-02-01 06:07 | NUR ---
Medication pt refused A.M.medication and RN notified
[2017-02-01] MEDS: SYNTHROID PO SCH (06:18)
[2017-02-01 07:40] VITALS: BP 108/58
--- NOTE | 2017-02-01 08:01 | NUR ---
Status Pt is A&O x 3, has pleasant affect. Will sit in day room and participate in group activities, but is reserved and only interacts when approached by staff or peers. Pt has not been a behavioral problem, but cont to refuse all medications, including medication for hypothyroidism. Pt has not been disruptive or threatening, but when becomes upset or angry, pt removes self from situation.
[2017-02-01] MEDS: COGENTIN PO SCH (09:00)
[2017-02-01] MEDS: RISPERDAL PO SCH (09:00)
[2017-02-01] MEDS: ZESTRIL PO SCH (09:00)
[2017-02-01] MEDS: CELEXA PO SCH (09:00)
[2017-02-01 19:00] VITALS: BP 104/62
[2017-02-01] MEDS: ZOCOR PO SCH (21:00)
--- NOTE | 2017-02-02 09:27 | PRM.PN ---
Mood: UP AND DOWN, GUARDED Sleep: SLEEPING OK AT NIGHT, SLEPT 7 HOURS LAST NIGHT Appetite: NORMAL APPETITE Suidical thoughts: NONE REPORTED Homicidal thoughts: NONE REPORTED Recent stressors: STRESS OF MENTAL ILLNESS, REFUSING MEDICATIONS Family support: LIMITED Aggressive Behavior: NONE REPORTED Ability to Perform ADL'sc: NEEDS SOME ASSISTANCE Psychotic sympstoms: HALLUCINATIONS, PARANOIA, DELUSIONS Manic Symptoms: NONE REPORTED Living situation: LIVES AT [facility] Illicit Drug usec: NONE REPORTED Alcoholo use: NONE REPORTED Tobacco use: NONE REPORTED Family,PT,Surgical,&Current HX: Anxity Symptoms: MODERATE ANXIETY LEVEL Anger/Irritablility: LIMITED ANGER AND IRRITABILITY Muscle Strength & Tone: WNL Gait & Station: WNL Appearance: Well groomed/hygience, Casual attire, Normal weight, Appears age stated Attitude & Behaviour: Uncooperative, Poor eye contact, Psychomotor retardation Mood & Affect: Flat, Blunted, Depressed Orientation: Fully oriented per interv Attention/Concentration: Fair attention, Fair concentration Speech: Reg rate/vol/rhyth/prosod Judgement/Insight: Poor judgement, Poor insight Thought Process: Loose, Tangential Language: Angolan Thought content/Abnormal/Psych: A/V Vaughan, Delusions Fund of Knowledge: Other Associations: EVA Memory (recent and remote): Recent memory repaired, Remote memory repaired Constitutional: None Neurological: None Psychiatric: Depressed, Anxious, Psychosis Aurora I: SCHIZOPHRENIA; GENERALIZED ANXIETY DISORDER, DEPRESSION Aurora II: DEFERRED Aurora III: REFER TO PMH/MEDICAL CHART Aurora IV: STRESS OF MENTAL ILLNESS Aurora V: GAF=25 Assessment/Plan Assessment/Plan Assessment/Plan First Vital Signs Date Time Temp Pulse Resp B/P (MAP) Pulse Ox O2 Delivery O2 Flow Rate FiO2 01/23/17 12:40 97.2 78 18 110/67 (81) 92 Room Air Last Vital Signs Date Time Temp Pulse Resp B/P (MAP) Pulse Ox O2 Delivery O2 Flow Rate FiO2 02/01/17 19:00 97.0 64 20 104/62 (76) 97 Room Air THE PATIENT WAS SEEN BY DR. LAW VIA TELEMEDICINE EQUIPMENT (VSEE) ALONG WITH THE TREATMENT TEAM. THE PATIENT CAME FROM [facility] IN [place], [place]. SHE WAS REFUSING HER MEDICATIONS AND NOT CARING FOR HERSELF PROPERLY. SHE HAS A HISTORY OF SCHIZOPHRENIA. SHE IS FOLLOWED BY DR. KARMEN REEVES AT [facility]. DR. LAW SPOKE WITH THE FACILITY AND THEY REPORTED THAT THE PATIENT RECEIVED INVEGA SUSTENA 117MG IM ON 12/22/16 AT 8AM. THE PATIENT IS GUARDED. SHE LEFT THE INTERVIEW ROOM WHEN I ASKED HER IF SHE WOULD TAKE HER MEDICATIONS. ASSESSMENT: SCHIZOPHRENIA; GENERALIZED ANXIETY DISORDER; DEPRESSION PLAN: 1) CONTINUE [facility] [place] MANAGEMENT. 2) DISCONTINUE RISPERDAL. START ZYPREXA ZYDIS 10MG PO QHS. CONTINUE OTHER MEDICATIONS AT CURRENT DOSES. STAFF AGREEABLE WITH THE PLAN. THE PATIENT WAS ENCOURAGED TO TAKE HER MEDICATIONS. TODAY'S VITAL SIGNS: TEMP.97.4, PULSE=57, RESP.=16, BP=93/63, O2 SAT WAS 94% ON RA. Problems: (1) Schizophrenia Status: Chronic ICD Code: F20.9 - Schizophrenia, unspecified SNOMED: [id number] Patient History: Unknown 32 MOTHER 33 FATHER 19 CHILD 19 CHILD Problem Qualifiers (1) Schizophrenia: Schizophrenia type: paranoid schizophrenia Qualified Codes: F20.0 - Paranoid schizophrenia MOUNIKA LAW IV, MD Feb 02, 2017 09:27
[2017-02-02] MEDS: ZYPREXA ZYDIS SL SCH (21:00)
[2017-02-02] MEDS: ZOCOR PO SCH (21:00)
[2017-02-03] MEDS: SYNTHROID PO SCH (06:30)
[2017-02-03 07:30] VITALS: BP 114/65
[2017-02-03] MEDS: ZESTRIL PO SCH (09:00)
[2017-02-03] MEDS: COGENTIN PO SCH (09:00)
[2017-02-03] MEDS: CELEXA PO SCH (09:00)
--- NOTE | 2017-02-03 17:31 | NUR ---
Behavior note: Patient is alert and oriented x3. She has sat quietly in the day room and does not initiate conversations but will answer questions. Patient continues to think that she does not need medications for her psychiatric problems and is NOT taking any of her medications at this time.
[2017-02-03 19:28] VITALS: BP 122/60
[2017-02-03] MEDS: ZYPREXA ZYDIS SL SCH (21:00)
[2017-02-04] MEDS: SYNTHROID PO SCH (05:51)
[2017-02-04 07:41] VITALS: BP 108/66
[2017-02-04] MEDS: CELEXA PO SCH (08:22)
[2017-02-04] MEDS: COGENTIN PO SCH ×2 (08:22→20:00)
[2017-02-04] MEDS: ZESTRIL PO SCH (08:23)
[2017-02-04] MEDS: ZOCOR PO SCH ×2 (08:24→20:00)
--- NOTE | 2017-02-04 08:25 | NUR ---
AM MEDS PT REFUSED MEDS THIS AM. WAS NOT UGLY ABOUT REFUSAL. JUST POLITELY REFUSED.
[2017-02-04] MEDS: ZYPREXA ZYDIS SL SCH (20:00)
[2017-02-04 20:21] VITALS: BP 129/63
--- NOTE | 2017-02-04 21:12 | NUR ---
BEHAVIORS PT. ORIENTED TIMES THREE AND DENIES DEPRESSION,ANXIETY AND PAIN. DENIES HALLUCINATIONS TONIGHT. ATTENDED GROUP AND ATE SNACKS. DID NOT INITIATE INTERACTION BUT RESPONDED TO APPROACH. PT. REFUSED HS MEDICATIONS TONIGHT.
[2017-02-05] MEDS: SYNTHROID PO SCH (06:15)
--- NOTE | 2017-02-05 06:38 | NUR ---
Medication Pt refused Levothyroxine 88mcg po. Pt asked dosage of med and was told, Pt then reports "Thats not enough, I wont take it. "
[2017-02-05 07:26] VITALS: BP 129/63
[2017-02-05 07:36] VITALS: BP 105/65
--- NOTE | 2017-02-05 08:24 | PRM.PN ---
Mood: UP AND DOWN, VERY GUARDED Sleep: SLEPT 8.25 HOURS LAST NIGHT Appetite: NORMAL APPETITE Suidical thoughts: NONE REPORTED Homicidal thoughts: NONE REPORTED Recent stressors: STRESS OF MENTAL ILLNESS Family support: DAUGHTER IN [place] Aggressive Behavior: NONE REPORTED Ability to Perform ADL'sc: YES, SHOWERING EVERY FEW DAYS Psychotic sympstoms: PARANOID, DELUSIONAL, HALLUCINATIONS, ODD THINKING Manic Symptoms: NONE REPORTED Living situation: LIVES AT [facility] Illicit Drug usec: NONE REPORTED Alcoholo use: NONE REPORTED Tobacco use: NONE REPORTED Family,PT,Surgical,&Current HX: Anxity Symptoms: MODERATE ANXIETY LEVEL Anger/Irritablility: PROBLEMS WITH ANGER AND IRRITABILITY Muscle Strength & Tone: WNL Gait & Station: WNL Appearance: Well groomed/hygience, Casual attire, Normal weight, Appears age stated Attitude & Behaviour: Uncooperative, Poor eye contact, Psychomotor agitation Mood & Affect: Iabile, Blunted, Angry Orientation: Disoriented to place, Disoriented to time, Disoriented to situation Attention/Concentration: Fair attention, Fair concentration Speech: Reg rate/vol/rhyth/prosod Judgement/Insight: Poor judgement, Poor insight Thought Process: Linear/goal directed Language: Lithuanian Thought content/Abnormal/Psych: A/V Vaughan, Delusions Fund of Knowledge: Other Associations: EVA Memory (recent and remote): Gross int/not form assess Constitutional: None Neurological: None Psychiatric: Depressed, Anxious, Psychosis [place] I: SCHIZOPHRENIA, PARANOID TYPE; VERONIKA [place] II: DEFERRED [place] III: REFER TO PMH/MEDICAL CHART [place] IV: STRESS OF MENTAL ILLNESS [place] V: GAF=25 Assessment/Plan Assessment/Plan Assessment/Plan First Vital Signs Date Time Temp Pulse Resp B/P (MAP) Pulse Ox O2 Delivery O2 Flow Rate FiO2 01/23/17 12:40 97.2 78 18 110/67 (81) 92 Room Air Last Vital Signs Date Time Temp Pulse Resp B/P (MAP) Pulse Ox O2 Delivery O2 Flow Rate FiO2 02/05/17 07:36 97.7 72 16 105/65 (78) 97 Room Air THE PATIENT WAS SEEN FACE TO FACE BY DR. LAW ALONG WITH THE TREATMENT TEAM. THE PATIENT WAS GUARDED DURING THE INTERVIEW. THE PATIENT IS REFUSING HER MEDICATIONS. THE PATIENT WAS ANGRY DURING THE INTERVIEW TODAY. THE PATIENT IS A POOR HISTORIAN. SHE DOES NOT THINK SHE HAS A MENTAL ILLNESS. THE PATIENT GETS ANGRY WHEN IT IS SUGGESTED THAT SHE HAS SCHIZOPHRENIA. THE PATIENT IS SHOWERING EVERY OTHER DAY PER STAFF. SHE DOES NOT KNOW THE DATE. SHE DOES NOT UNDERSTAND THE SITUATION. SHE HAS ODD AND DELUSIONAL THINKING. THE PATIENT PROBABLY HAS AUDITORY HALLUCINATIONS. SHE LAUGHS INAPPROPRIATELY. ASSESSMENT: SCHIZOPHRENIA, PARANOID TYPE; GENERALIZED ANXIETY DISORDER PLAN: 1) CONTINUE [facility] MANAGEMENT. 2) START INVEGA SUSTENNA 156MG IM TODAY. CONTINUE OTHER MEDICATIONS AT OTHER DOSES. STAFF AGREEABLE WITH THE PLAN. Problems: (1) Schizophrenia Status: Chronic ICD Code: F20.9 - Schizophrenia, unspecified SNOMED: [id number] Patient History: Unknown 32 MOTHER 33 FATHER 19 CHILD 19 CHILD Problem Qualifiers (1) Schizophrenia: Schizophrenia type: paranoid schizophrenia Qualified Codes: F20.0 - Paranoid schizophrenia MOUNIKA LAW IV, MD Feb 05, 2017 08:24
[2017-02-05] MEDS: COGENTIN PO SCH ×2 (08:34→20:02)
[2017-02-05] MEDS: ZESTRIL PO SCH (08:34)
[2017-02-05] MEDS: CELEXA PO SCH (08:34)
--- NOTE | 2017-02-05 08:35 | NUR ---
AM MEDICATIONS PT REFUSED AM MEDICATIONS. WAS POLITE AND JUST SAID DID NOT WANT TO TAKE. RN AWARE.
[2017-02-05] MEDS ORDERED: NON-FORMULARY MEDICATION 1 EA EA IM ONE (09:00)
--- NOTE | 2017-02-05 09:52 | NUR ---
INVEGA INJECTION DR LAW BROUGHT THE INVEGA 156MG SAMPLE INJECTION TO BE GIVEN TO PT THIS AM. PT WAS ASKED TO GO TO HER ROOM. RN EXPLAINED THAT DR LAW ORDERED HER INJECTION BEEN GIVEN TO HER. PT DID NOT WANT TO HAVE THE INJECTION. RN EXPLAINED INJECTION CAN BE GIVEN IN ARM JUST LIKE A FLU SHOT. ELECTRIC BRAIN WAVE EQUIPMENT MECHANIC ADMINISTERED INJECTION IN LEFT DELTOID WITHOUT ANY DIFFICULTY FROM PT. PT JUST STOOD THERE AND ALLOWED INJECTION TO BE GIVEN. PT THEN WENT AND LAID DOWN ON THE BED. ELECTRIC BRAIN WAVE EQUIPMENT MECHANIC WENT AND EXPLAINED TO DR LAW IN THE CONFERENCE ROOM THAT INJECTION WAS GIVEN AND THAT PT JUST STOOD THERE AND LET US. DID SAY SHE DID NOT WANT IT BUT DID TAKE THE INJECTION. WHEN WENT IN TO CHECK ON PT SHE WAS LAYING IN BED QUIETLY. DENIED ANY NEEDS AT THAT TIME.
--- NOTE | 2017-02-05 10:48 | NUR ---
Tx team Pt was seen by Dr. Alaniz and tx team this A.M. Pt continues to have poor insight and denies hallucinations despite being seen by several staff members talking to self in chair. Pt denies depressive symptoms, denies paranoia. When asked how her mood was, stated, "It's been good." Pt became irritable when told by Dr. Alaniz that we were treating her for mental health concerns, pt stated, "I was originally diagnosed with schizophrenia, but I don't have mental health problems." States, "I'm tired of the bull shit." When asked what she meant, pt stated, "The schizophrenia bullshit." Pt left treatment room and went to day room. Pt was given IM Invega per Dr. Alaniz's orders, did not become combative with staff during admin.
[2017-02-05 19:00] VITALS: BP 102/61
[2017-02-05] MEDS: ZYPREXA ZYDIS SL SCH (20:03)
[2017-02-05] MEDS: ZOCOR PO SCH (20:03)
--- NOTE | 2017-02-05 20:48 | NUR ---
behaviors PT. ORIENTED TIMES THREE AND DENIES DEPRESSION,ANXIETY AND PAIN. ATTENDED GROUP AND ATE A SNACK BUT DID NOT INITIATE INTERACTION AND ANSWERED QUESTIONS WITH ONE WORD. REFUSED HS MEDS. WHEN PT. WAS IN HER ROOM STAFF HEARD PT. TALKING TO SOMEONE NOT THERE IF SHE WAS ARGUING WITH SOMEONE. WHEN STAFF ASKED HER WHO SHE WAS TALKING TO SHE SAID NOBODY. WALKED IN HALLWAY.
[2017-02-06] MEDS: SYNTHROID PO SCH (06:12)
[2017-02-06 07:22] VITALS: BP 110/73
--- NOTE | 2017-02-06 07:30 | NUR ---
Status Pt is alert and oriented x 3, has flat, but cooperative affect. Pt is only uncooperative with medications. Denies depressive symptoms. Pt sitting up in recliner, speaking rapidly, indiscernible speech, angry facial expression; pt asked who she was talking to, affect immediately changed, stopped talking, and pt stated, "I'm not talking to anyone." Continues to deny having hallucinations.
[2017-02-06] MEDS: CELEXA PO SCH (08:45)
[2017-02-06] MEDS: COGENTIN PO SCH ×2 (08:45→21:00)
[2017-02-06] MEDS: ZESTRIL PO SCH (08:46)
--- NOTE | 2017-02-06 08:46 | NUR ---
AM MEDICATIONS PT REFUSED MORNING MEDS THIS MORNING. STATED NO SHE DID NOT WANT THEM. WANT NOT RUDE OR ANGRY ABOUT IT. RN AWARE.
--- NOTE | 2017-02-06 10:48 | PRM.PN ---
Mood: UP AND DOWN, GUARDED Sleep: SLEPT 7.75 HOURS LAST NIGHT Appetite: NORMAL APPETITE Suidical thoughts: NONE REPORTED Homicidal thoughts: NONE REPORTED Recent stressors: STRESS OF MENTAL ILLNESS Family support: DAUGHTER IN [place] Aggressive Behavior: NONE REPORTED Ability to Perform ADL'sc: YES Psychotic sympstoms: DELUSIONS, PARANOIA, HALLUCINATIONS Manic Symptoms: NONE REPORTED Living situation: LIVES AT [facility] Illicit Drug usec: NONE REPORTED Alcoholo use: NONE REPORTED Tobacco use: NONE REPORTED Family,PT,Surgical,&Current HX: Anxity Symptoms: MILD ANXIETY LEVEL Anger/Irritablility: SOME IRRITABILITY Muscle Strength & Tone: WNL Gait & Station: WNL Appearance: Well groomed/hygience, Casual attire, Normal weight, Appears age stated Attitude & Behaviour: Uncooperative, Poor eye contact, Psychomotor retardation Mood & Affect: Flat, Blunted, Angry Orientation: Fully oriented per interv Attention/Concentration: Fair attention, Fair concentration Speech: Reg rate/vol/rhyth/prosod Judgement/Insight: Poor judgement, Poor insight Thought Process: Linear/goal directed Language: Romanian Thought content/Abnormal/Psych: A/V Vaughan, Delusions Fund of Knowledge: WNL Associations: WNL/Normal Associations Memory (recent and remote): Gross int/not form assess Constitutional: None Neurological: None Psychiatric: Psychosis [place] I: SCHIZOPHRENIA, PARANOID TYPE; ANXIETY; DEPRESSION [place] II: DEFERRED [place] III: REFER TO PMH/MEDICAL CHART [place] IV: STRESS OF MENTAL ILLNESS [place] V: GAF=25 TO 30 Assessment/Plan Assessment/Plan Assessment/Plan First Vital Signs Date Time Temp Pulse Resp B/P (MAP) Pulse Ox O2 Delivery O2 Flow Rate FiO2 01/23/17 12:40 97.2 78 18 110/67 (81) 92 Room Air Last Vital Signs Date Time Temp Pulse Resp B/P (MAP) Pulse Ox O2 Delivery O2 Flow Rate FiO2 02/06/17 08:46 110/73 02/06/17 07:22 97.9 69 18 99 Room Air THE PATIENT WAS SEEN BY DR. LAW ALONG WITH THE TREATMENT TEAM VIA TELEMEDICINE EQUIPMENT (VSEE) ALONG WITH THE TREATMENT TEAM. THE PATIENT RECEIVED AN INVEGA SUSTENNA 156MG IM INJECTION YESTERDAY. THE PATIENT HAS BEEN SEEN HALLUCINATNG BY STAFF. THE PATIENT IS VERY GUARDED. SHE DOWNPLAYS HER SYMPTOMS TO DR. LAW AND STAFF. THE PATIENT HAS NEGATIVE SYMPTOMS. THE PATIENT HAS PARANOIA. THE PATIENT IS SLEEPING AND EATING WELL. SHE HAS IMPROVED HER HYGIENE. THE PATIENT DENIES SI OR HI. THE PATIENT IS NOT HAVING ANY PHYSICAL PAIN. THE PATIENT DENIES ANXIETY SYMPTOMS TODAY. THE PATIENT IS REFUSING ALL OF HER ORAL MEDICATIONS. ASSESSMENT: SCHIZOPHRENIA, PARANOID TYPE; GENERALIZED ANXIETY DISORDER; DEPRESSION PLAN: 1) CONTINUE [facility] MANAGEMENT. 2) CONTINUE CURRENT MEDICATIONS. SHE WAS ENCOURAGED TO TAKE HER MEDICATIONS. STAFF AGREEABLE WITH THE PLAN. Problems: (1) Schizophrenia Status: Chronic ICD Code: F20.9 - Schizophrenia, unspecified SNOMED: [id number] Patient History: Unknown 32 MOTHER 33 FATHER 19 CHILD 19 CHILD Problem Qualifiers (1) Schizophrenia: Schizophrenia type: paranoid schizophrenia Qualified Codes: F20.0 - Paranoid schizophrenia MOUNIKA LAW IV, MD Feb 06, 2017 10:48
--- NOTE | 2017-02-06 11:50 | NUR ---
VSEE Pt was seen by Dr. Alaniz via telemed, no new orders @ this time.
[2017-02-06 19:40] VITALS: BP 115/64
[2017-02-06] MEDS: ZYPREXA ZYDIS SL SCH (21:00)
[2017-02-06] MEDS: ZOCOR PO SCH (21:00)
--- NOTE | 2017-02-06 21:10 | NUR ---
Medication pt refused HS medication and Liliana CHOI made aware
--- NOTE | 2017-02-06 23:15 | NUR ---
BEHAVIORS PT. ORIENTED TIMES THREE AND DENIES DEPRESSION,ANXIETY OR PAIN. QUIET BUT RESPONDS TO APROACH WITH VERY FEW WORDS.
[2017-02-07] MEDS: SYNTHROID PO SCH (06:22)
--- NOTE | 2017-02-07 06:22 | NUR ---
Medication pt refused AM med notifiied RN
[2017-02-07 08:20] VITALS: BP 101/71
[2017-02-07] MEDS: COGENTIN PO SCH ×2 (09:00→20:08)
[2017-02-07] MEDS: CELEXA PO SCH (09:00)
[2017-02-07] MEDS: ZESTRIL PO SCH (09:00)
--- NOTE | 2017-02-07 17:14 | NUR ---
BEHAVIOR NOTE: Patient has sat in day room and attended all groups. She has been calm and cooperative and pleasant but at times is caught talking to self mumbling.
[2017-02-07 19:40] VITALS: BP 110/66
[2017-02-07] MEDS: ZOCOR PO SCH (20:08)
[2017-02-07] MEDS: ZYPREXA ZYDIS SL SCH (20:08)
[2017-02-08] MEDS: SYNTHROID PO SCH (05:59)
[2017-02-08 07:21] VITALS: BP 108/72
--- NOTE | 2017-02-08 08:59 | NUR ---
BEHAVIOR NOTE: Patient is quiet and does not initiate conversations but responds when spoken to. She has not been combative but continues to refuse to take her prescribed medications. She denies suicidal/homicidal ideation, denies hallucinations auditory/visual at this time.
[2017-02-08] MEDS: COGENTIN PO SCH ×2 (09:00→20:00)
[2017-02-08] MEDS: ZESTRIL PO SCH (09:00)
[2017-02-08] MEDS: CELEXA PO SCH (09:00)
[2017-02-08 19:24] VITALS: BP 106/63
[2017-02-08] MEDS: ZOCOR PO SCH (20:00)
[2017-02-08] MEDS: ZYPREXA ZYDIS SL SCH (20:00)
--- NOTE | 2017-02-08 20:03 | NUR ---
medications / Patient states "no i am not taking my medications" patient refused hs meds on 02/07 and is refusing hs meds at this time
[2017-02-09] MEDS: SYNTHROID PO SCH ×2 (05:30→11:41)
[2017-02-09 07:19] VITALS: BP 117/71
[2017-02-09] MEDS: COGENTIN PO SCH ×2 (08:34→20:04)
[2017-02-09] MEDS: CELEXA PO SCH (08:34)
[2017-02-09] MEDS: ZESTRIL PO SCH (08:34)
--- NOTE | 2017-02-09 08:35 | NUR ---
AM MEDS PT REFUSES AM MEDICATIONS AGAIN THIS DAY. JUST STATES "NO I'M NOT TAKING MY MEDICINE". WAS NOT UGLY IN SAYING IT. REPORTED TO RN.
[2017-02-09] MEDS ORDERED: SYNTHROID ONE (09:40)
--- NOTE | 2017-02-09 10:14 | PRM.PN ---
Mood: "OK", FLAT AFFECT, GUARDED Sleep: SLEEPING WELL AT NIGHT, NORMAL ENERGY LEVEL Appetite: NORMAL APPETITE Suidical thoughts: NONE REPORTED Homicidal thoughts: NONE REPORTED Recent stressors: STRESS OF MENTAL ILLNESS Family support: DAUGHTER IN [place], [place] Aggressive Behavior: NONE REPORTED Ability to Perform ADL'sc: YES Psychotic sympstoms: DELUSIONAL THINKING, HALLUCINATIONS, PARANOIA, NEGATIVE SYMPTOMS Manic Symptoms: NONE REPORTED Living situation: LIVES AT [facility] Illicit Drug usec: NONE REPORTED Alcoholo use: NONE REPORTED Tobacco use: NONE REPORTED Family,PT,Surgical,&Current HX: Anxity Symptoms: MODERATE ANXIETY LEVEL Anger/Irritablility: SOME IRRITABILITY, LIMITED ANGER Muscle Strength & Tone: WNL Gait & Station: WNL Appearance: Well groomed/hygience, Casual attire, Normal weight, Appears age stated Attitude & Behaviour: Uncooperative, Poor eye contact, Psychomotor retardation Mood & Affect: Euthymic/appr/congruent, Angry Orientation: Disoriented to time, Disoriented to situation Attention/Concentration: Fair attention, Fair concentration Speech: Reg rate/vol/rhyth/prosod Judgement/Insight: Poor judgement, Poor insight Thought Process: Linear/goal directed Language: Italian Thought content/Abnormal/Psych: A/V Vaughan, Delusions Fund of Knowledge: WNL Associations: WNL/Normal Associations Memory (recent and remote): Gross int/not form assess Constitutional: None Neurological: None Psychiatric: Anxious, Psychosis [place] I: SCHIZOPHRENIA, PARANOID TYPE; GENERALIZED ANXIETY DISORDER [place] II: DEFERRED [place] III: REFER TO PMH/MEDICAL CHART [place] IV: STRESS OF MENTAL ILLNESS [place] V: GAF=30 Assessment/Plan Assessment/Plan Assessment/Plan First Vital Signs Date Time Temp Pulse Resp B/P (MAP) Pulse Ox O2 Delivery O2 Flow Rate FiO2 01/23/17 12:40 97.2 78 18 110/67 (81) 92 Room Air Last Vital Signs Date Time Temp Pulse Resp B/P (MAP) Pulse Ox O2 Delivery O2 Flow Rate FiO2 02/09/17 08:34 117/71 02/09/17 07:19 98.5 73 18 95 Room Air THE PATIENT WAS SEEN BY DR. LAW VIA TELEMEDICINE EQUIPMENT (VSEE) ALONG WITH NURSING STAFF. THE PATIENT WAS IN NO DISTRESS DURING THE INTERVIEW. SHE HAS BEEN REFUSING TO TAKE HER ORAL MEDICATIONS. SHE DID RECEIVED INVEGA SUSTENNA 156MG IM LAST FRIDAY (5 DAYS AGO). THE PATIENT HAS POOR INSIGHT INTO HER ILLNESS. THE PATIENT IS BEING TREATED FOR SCHIZOPHRENIA. SHE DOWNPLAYS THE SIGNIFICANCE OF HER PROBLEMS. THE PATIENT SLEPT 7.5 HOURS LAST NIGHT. THE PATIENT HAS BEEN EATING WELL. THE PATIENT ATE 100% OF HER MEDICATIONS. THE PATIENT HAS BEEN COOPERATIVE WITH STAFF THIS WEEKEND. THE PATIENT LIVES AT THE [facility]. THE PATIENT TOOK A SHOWER THIS MORNING. THE PATIENT WALKED OUT OF THE INTERVIEW AT THE END OF THE SESSION. ASSESSMENT: SCHIZOPHRENIA, PARANOID TYPE; GENERALIZED ANXIETY DISORDER PLAN: 1) CONTINUE [facility] [employer] MANAGEMENT. 2) CONTINUE CURRENT MEDICATIONS. ENCOURAGED TO TAKE ORAL MEDICATIONS. STAFF AGREEABLE WITH THE PLAN. SUPPORTIVE THERAPY GIVEN. Problems: (1) Schizophrenia Status: Chronic ICD Code: F20.9 - Schizophrenia, unspecified SNOMED: [id number] Patient History: Unknown 32 MOTHER 33 FATHER 19 CHILD 19 CHILD Problem Qualifiers (1) Schizophrenia: Schizophrenia type: paranoid schizophrenia Qualified Codes: F20.0 - Paranoid schizophrenia MOUNIKA LAW IV, MD Feb 09, 2017 10:14
--- NOTE | 2017-02-09 10:35 | NUR ---
VSEE Dr Alaniz spoke to pt via telemed. Pt Denies need for medicene and states I dont need a shot. Pt did agree to take thyroid med. Dr Alaniz discussed discharge with pt asking if she would agree to injection for psych med and would be able to go back to home that she was in. pt got up and left room.
--- NOTE | 2017-02-09 11:45 | NUR ---
SYNTHROID AFTER TALKING TO DR LAW ON VSEE PT AGREED TO TAKE SYNTHROID MEDICATION. SYNTHROID 88 MCG WAS GIVEN TO PT. PT TOOK THE MEDICATION WITHOUT DIFFICULTY. NURSE THANKED PT FOR AGREEING TO TAKE THE MEDICATION AND IF SHE WOULD LIKE ANY OF HER OTHER MEDS TO JUST LET THE NURSE KNOW. PT STILL DECLINED TO TAKE ANY OF HER OTHER MEDS AT THIS TIME. STATING THAT SHE DID NOT NEED ANY MEDICINE.
[2017-02-09 19:30] VITALS: BP 100/57
[2017-02-09] MEDS: ZYPREXA ZYDIS SL SCH (20:05)
[2017-02-09] MEDS: ZOCOR PO SCH (20:05)
--- NOTE | 2017-02-09 20:05 | NUR ---
medications Patient refused HS meds stating "i dont need them," encouraged patient to take meds patient continues to refuse, RN notiied
[2017-02-10] MEDS: SYNTHROID PO SCH (05:44)
[2017-02-10] MEDS: COGENTIN PO SCH ×2 (07:31→20:42)
[2017-02-10] MEDS: CELEXA PO SCH (07:31)
[2017-02-10] MEDS: ZESTRIL PO SCH (07:31)
[2017-02-10 08:12] VITALS: BP 135/83
--- NOTE | 2017-02-10 13:32 | NUR ---
BEHAVIOR NOTE: Patient is calm, cooperative and quiet. She does not initiate conversations but will answer questions. Patient denies auditory and visual hallucinations and continues to state "I am not sick" "I do not need medication". Patient is continuing to refuse by mouth medications. Addendum: 02/10/17 at 1334 by STEPH Marie RN At times patient is found mumbling to herself and smiling but denies when asked about hallucinations.
[2017-02-10 19:56] VITALS: BP 104/62
[2017-02-10] MEDS: ZYPREXA ZYDIS SL SCH (20:43)
[2017-02-10] MEDS: ZOCOR PO SCH (20:43)
[2017-02-11] MEDS: SYNTHROID PO SCH ×2 (06:14→08:28)
--- NOTE | 2017-02-11 06:24 | NUR ---
Medication pt refused HS medication and A.M. meds notifiedk Bobbi CHOI of pt refusing medication
[2017-02-11] MEDS ORDERED: SYNTHROID ONE (06:25)
[2017-02-11 07:57] VITALS: BP 123/75
[2017-02-11] MEDS: CELEXA PO SCH (08:31)
[2017-02-11] MEDS: ZESTRIL PO SCH (08:31)
[2017-02-11] MEDS: COGENTIN PO SCH ×2 (08:31→20:42)
--- NOTE | 2017-02-11 14:02 | NUR ---
Status Pt is alert and oriented x 3. Has pleasant affect, cont to isolate to room @ times. Will participate in group activities with prompting, does not initiate interaction. Denies depression, anxiety, and suicide ideation. Denies hallucinations, but is seen moving lips and smiling when alone in room. Pt becomes irritable @ times when asked if hallucinating or when asked who she is talking to. Cont to refuse PO medications, except for synthroid.
[2017-02-11 19:30] VITALS: BP 114/66
--- NOTE | 2017-02-11 20:00 | NUR ---
BEHAVIORS PT. ORIENTED TIMES THREE. DENIES DEPRESSION,ANXIETY AND PAIN. ATTENDED GROUP,ATE SNACKS AND PARTICIPATED IN EXERCISES. QUIET AND DID NOT INITIATE INTERACTION BUT RESPONDED TO APPROACH.
[2017-02-11] MEDS: ZYPREXA ZYDIS SL SCH (20:42)
[2017-02-11] MEDS: ZOCOR PO SCH (20:42)
--- NOTE | 2017-02-11 21:03 | NUR ---
Medication pt refused rhea Ford RN notified
[2017-02-12] MEDS ORDERED: SYNTHROID ONE (03:58)
[2017-02-12] MEDS: SYNTHROID PO SCH (06:02)
[2017-02-12 07:38] VITALS: BP 108/73
[2017-02-12] MEDS: CELEXA PO SCH (08:34)
[2017-02-12] MEDS: COGENTIN PO SCH ×2 (08:34→20:42)
[2017-02-12] MEDS: ZESTRIL PO SCH (08:34)
--- NOTE | 2017-02-12 08:35 | NUR ---
AM MEDICATIONS PT REFUSED AM MEDS THIS AM. STATES NO I DO NOT WANT THEM. PT ENCOURAGED TO TAKE MEDS TO GET BETTER BUT STATES DOES NOT NEED ANY MEDS NOTHING WRONG WITH HER. RN AWARE.
--- NOTE | 2017-02-12 08:42 | PRM.PN ---
Mood: UP AND DOWN, IRRITABLE Sleep: SLEEPING WELL AT NIGHT Appetite: NORMAL APPETITE Suidical thoughts: NONE REPORTED Homicidal thoughts: NONE REPORTED Recent stressors: STRESS OF MENTAL ILLNESS Family support: DAUGHTER IN [place], [place] Aggressive Behavior: NONE REPORTED Ability to Perform ADL'sc: YES Psychotic sympstoms: HALLUCINATIONS, PARANOIA, DELUSIONAL Manic Symptoms: NONE REPORTED Living situation: WAS LIVING AT [facility] [place] Illicit Drug usec: NONE REPORTED Alcoholo use: NONE REPORTED Tobacco use: NONE REPORTED Family,PT,Surgical,&Current HX: Anxity Symptoms: MODERATE ANXIETY LEVEL Anger/Irritablility: PROBLEMS WITH ANGER AND IRRITABILITY Muscle Strength & Tone: WNL Gait & Station: WNL Appearance: Well groomed/hygience, Casual attire, Normal weight, Appears age stated Attitude & Behaviour: Uncooperative, Poor eye contact, Hostile, Psychomotor agitation Mood & Affect: Flat, Constricted, Blunted, Angry, Depressed Orientation: Fully oriented per interv Attention/Concentration: Fair attention, Fair concentration Speech: Reg rate/vol/rhyth/prosod Judgement/Insight: Poor judgement, Poor insight Thought Process: Loose, Tangential Language: Barbadian Thought content/Abnormal/Psych: A/V Vaughan, Delusions Fund of Knowledge: Other Associations: EVA Memory (recent and remote): Gross int/not form assess Constitutional: None Neurological: None Psychiatric: Depressed, Anxious, Psychosis [place] I: SCHIZOPHRENIA; PARNOID TYPE; DEPRESSION; ANXIETY [place] II: DEFERRED [place] III: REFER TO PMH/MEDICAL CHART [place] IV: STRESS OF MENTAL ILLNESS [place] V: GAF=25 Assessment/Plan Assessment/Plan Assessment/Plan First Vital Signs Date Time Temp Pulse Resp B/P (MAP) Pulse Ox O2 Delivery O2 Flow Rate FiO2 01/23/17 12:40 97.2 78 18 110/67 (81) 92 Room Air Last Vital Signs Date Time Temp Pulse Resp B/P (MAP) Pulse Ox O2 Delivery O2 Flow Rate FiO2 02/12/17 07:38 98.0 72 18 108/73 (85) 94 Room Air THE PATIENT WAS SEEN BY DR. LAW FACE TO FACE ALONG WITH THE TREATMENT TEAM. THE PATIENT SLEPT 8 HOURS LAST NIGHT. THE PATIENT NORMALLY SLEEPS WELL. THE PATIENT HAS BEEN EATING WELL PER STAFF. THE PATIENT HAS BEEN TAKING SHOWERS PER STAFF. HER HYGIENE HAS IMPROVED PER STAFF. THE PATIENT HAS NEGATIVE SYMPTOMS. THE PATIENT HAS DELUSIONAL THINKING. THE PATIENT IS REFUSING HER MEDICATIONS. SHE DOES NOT FEEL LIKE SHE HAS A MENTAL HEALTH PROBLEM. THE PATIENT HAS AUDITORY AND VISUAL HALLUCINATIONS.THE PATIENT HAS ODD AND DELUSIONAL THINKING. THE PATIENT HAS BEEN TAKING HER THYROID MEDICATION. THE PATIENT RECEIVED AN INVEGA SUSTENNA INJECTION LAST FRIDAY. ASSESSMENT: SCHIZOPHRENIA, PARANOID; GENERALIZED ANXIETY DISORDER; DEPRESSION PLAN: 1) CONTINUE [employer] [employer] MANAGEMENT. 2) CONTINUE CURRENT MEDICATIONS. STAFF AGREEABLE WITH THE PLAN. THE PATIENT HAS POOR INSIGHT INTO HER ILLNESS. Problems: (1) Schizophrenia Status: Chronic ICD Code: F20.9 - Schizophrenia, unspecified SNOMED: [id number] Patient History: Unknown 32 MOTHER 33 FATHER 19 CHILD 19 CHILD Problem Qualifiers (1) Schizophrenia: Schizophrenia type: paranoid schizophrenia Qualified Codes: F20.0 - Paranoid schizophrenia MOUNIKA LAW IV, MD Feb 12, 2017 08:42
--- NOTE | 2017-02-12 15:11 | NUR ---
BEHAVIOR NOTE: Patient has not been taking by mouth psychiatric medication. She is quiet and talks only when spoken to. She has been mumbling to self at times but denies auditory and visual hallucinations.
[2017-02-12 19:58] VITALS: BP 123/73
[2017-02-12] MEDS: ZYPREXA ZYDIS SL SCH (20:42)
[2017-02-12] MEDS: ZOCOR PO SCH (20:42)
--- NOTE | 2017-02-12 21:04 | NUR ---
medications Patient states "no i am not taking any medicine", encouraged patient to take meds but patient continues to refused, RN notified
[2017-02-13] MEDS ORDERED: SYNTHROID ONE (03:38)
[2017-02-13] MEDS: SYNTHROID PO SCH (05:39)
[2017-02-13 07:32] VITALS: BP 98/65
[2017-02-13] MEDS: COGENTIN PO SCH ×2 (08:46→20:14)
[2017-02-13] MEDS: CELEXA PO SCH (08:46)
[2017-02-13] MEDS: ZESTRIL PO SCH (08:46)
--- NOTE | 2017-02-13 08:47 | NUR ---
MEDICATIONS PT REFUSED MEDICATIONS THIS AM. STILL INSISTS THAT DOES NOT NEED THEM THAT SHE IS NOT SICK SO DOES NOT NEED TO TAKE ANY MEDICATIONS. ENCOURAGED PT TO TAKE MEDICATIONS TO FEEL BETTER AND HELP HER NOT TALK TO SELF. DENIES TALKING TO SELF. REFUSAL REPORTED TO RN.
--- NOTE | 2017-02-13 11:46 | PRM.PN ---
Mood: UP AND DOWN, IRRITABLE, GETS MAD WHEN ASKED ABOUT MEDICATIONS Sleep: SLEEPING WELL AT NIGHT Appetite: NORMAL APPETITE Suidical thoughts: NONE REPORTED Homicidal thoughts: NONE REPORTED Recent stressors: STRESS OF MENTAL ILLNESS Family support: DAUGHTER IN [place] Aggressive Behavior: NONE REPORTED Ability to Perform ADL'sc: YES Psychotic sympstoms: HALLUCINATIONS, PARANOIA, DELUSIONS Manic Symptoms: NONE REPORTED Living situation: LIVES AT [facility] Illicit Drug usec: NONE REPORTED Alcoholo use: NONE REPORTED Tobacco use: NONE REPORTED Family,PT,Surgical,&Current HX: Anxity Symptoms: MODERATE ANXIETY LEVEL Anger/Irritablility: SOME ANGER AND IRRITABILITY Muscle Strength & Tone: WNL Gait & Station: WNL Appearance: Well groomed/hygience, Casual attire, Normal weight, Appears age stated Attitude & Behaviour: Uncooperative, Poor eye contact Mood & Affect: Flat, Iabile, Blunted Orientation: Fully oriented per interv Attention/Concentration: Fair attention, Fair concentration Speech: Reg rate/vol/rhyth/prosod Judgement/Insight: Poor judgement, Poor insight Thought Process: Linear/goal directed Language: Wolof Thought content/Abnormal/Psych: A/V [place], Delusions Fund of Knowledge: Other Associations: WNL/Normal Associations Memory (recent and remote): Gross int/not form assess Constitutional: None Neurological: None Psychiatric: Psychosis [place] I: SCHIZOPHRENIA, PARANOID TYPE; GENERALZIED ANXIETY DISORDER [place] II: DEFERRED [place] III: REFER TO PMH/MEDICAL CHART [place] IV: STRESS OF MENTAL ILLNESS [place] V: GAF=25 Assessment/Plan Assessment/Plan Assessment/Plan First Vital Signs Date Time Temp Pulse Resp B/P (MAP) Pulse Ox O2 Delivery O2 Flow Rate FiO2 01/23/17 12:40 97.2 78 18 110/67 (81) 92 Room Air Last Vital Signs Date Time Temp Pulse Resp B/P (MAP) Pulse Ox O2 Delivery O2 Flow Rate FiO2 02/13/17 08:46 98/65 02/13/17 07:32 98.0 75 18 90 Room Air THE PATIENT WAS SEEN BY DR. LAW VIA TELEMEDICINE EQUIPMENT (VSEE) ALONG WITH THE TREATMENT TEAM. THE PATIENT SLEPT 8 HOURS LAST NIGHT. THE PATIENT HAS BEEN EATING WELL. THE PATIENT HAS BEEN REFUSING HER MEDICATIONS. SHE RECEIVED AN INVEGA SUSTENNA 156MG IM INJECTION ABOUT 8 DAYS AGO. THE PATIENT HAS NEGATIVE SYMPTOMS. THE PATIENT HAS AUDITORY AND VISUAL HALLUCINATIONS. THE PATIENT DOWNPLAYS THE SIGNIFICANCE OF HER SYMPTOMS. THE PATIENT DENIES MANIC OR HYPOMANIC SYMPTOMS. THE PATIENT GETS ANGRY WHEN STAFF OR DR. LAW TELL HER TO TAKE HER MEDICATIONS. ASSESSMENT: SCHIZOPHRENIA, PARANOID TYPE; GENERALIZED ANXIETY DISORDER PLAN: 1) CONTINUE [employer] [employer] MANAGEMENT. 2) CONTINUE TRYING TO GET HER TO TAKE HER MEDICATIONS. THE PATIENT IS NOT COOPERATIVE WITH HER TREATMENT. SUPPORTIVE THERAPY GIVEN. Problems: (1) Schizophrenia Status: Chronic ICD Code: F20.9 - Schizophrenia, unspecified SNOMED: [id number] Patient History: Unknown 32 MOTHER 33 FATHER 19 CHILD 19 CHILD Problem Qualifiers (1) Schizophrenia: Schizophrenia type: paranoid schizophrenia Qualified Codes: F20.0 - Paranoid schizophrenia MOUNIKA LAW IV, MD Feb 13, 2017 11:46
[2017-02-13 19:46] VITALS: BP 102/62
[2017-02-13 19:50] VITALS: BP 102/62
[2017-02-13] MEDS: ZOCOR PO SCH (20:14)
[2017-02-13] MEDS: ZYPREXA ZYDIS SL SCH (20:14)
--- NOTE | 2017-02-13 20:15 | NUR ---
medications Patient refused all HS meds at this time, RN notiied
[2017-02-14] MEDS ORDERED: SYNTHROID ONE (03:34)
[2017-02-14] MEDS: SYNTHROID PO SCH (05:36)
[2017-02-14 07:31] VITALS: BP 121/80
[2017-02-14] MEDS: CELEXA PO SCH (08:42)
[2017-02-14] MEDS: ZESTRIL PO SCH (08:43)
[2017-02-14] MEDS: COGENTIN PO SCH ×2 (08:43→20:22)
--- NOTE | 2017-02-14 11:00 | NUR ---
Status Pt is alert and oriented x 3. Flat affect, but cooperative and pleasant when approached. Denies depressive symptoms. No hallucinations or delusions exhibited @ this time. Pt has been participating in group activities and has not had behavioral problems. Has been taking PO synthroid, but refuses to take all other medications, states, "I don't take that. I don't need it."
[2017-02-14 19:28] VITALS: BP 116/54
[2017-02-14] MEDS: ZOCOR PO SCH (20:22)
[2017-02-14] MEDS: ZYPREXA ZYDIS SL SCH (20:23)
--- NOTE | 2017-02-14 20:23 | NUR ---
MEDICATIONS PT REFUSED HS MEDS AT THIS TIME. PT WAS ENCOURAGED TO TAKE MEDS BUT SHE SAID SHE IS NOT SICK AND DOES NOT NEED THEM. RN IS AWARE OF PT REFUSAL.
[2017-02-15] MEDS ORDERED: SYNTHROID ONE (04:07)
[2017-02-15] MEDS: SYNTHROID PO SCH (06:09)
[2017-02-15 07:55] VITALS: BP 112/60
[2017-02-15] MEDS: COGENTIN PO SCH ×2 (09:00→20:26)
[2017-02-15] MEDS: ZESTRIL PO SCH (09:00)
[2017-02-15] MEDS: CELEXA PO SCH (09:00)
--- NOTE | 2017-02-15 10:40 | NUR ---
Status Pt is alert and oriented x 3, has pleasant affect. Denies depression, anxiety, and hallucinations. Pt has been seen talking to self while sitting in recliner in day room. Cont to refuse PO medications except for synthroid. Otherwise, pt is cooperative with assessments and group activities.
[2017-02-15 19:59] VITALS: BP 104/58
[2017-02-15] MEDS: ZOCOR PO SCH (20:26)
[2017-02-15] MEDS: ZYPREXA ZYDIS SL SCH (20:27)
--- NOTE | 2017-02-15 20:27 | NUR ---
HS MEDICATIONS PT REFUSED HS MEDS THIS EVENING. ENCOURAGED TO TAKE BUT PT STATED THAT IS NOT SICK AND DOES NOT NEED ANY MEDICATIONS. RN IS AWARE OF REFUSAL.
[2017-02-16] MEDS ORDERED: SYNTHROID ONE (04:06)
[2017-02-16] MEDS: SYNTHROID PO SCH (06:07)
[2017-02-16] MEDS: COGENTIN PO SCH ×2 (08:18→20:46)
[2017-02-16] MEDS: CELEXA PO SCH (08:18)
[2017-02-16] MEDS: ZESTRIL PO SCH (08:18)
[2017-02-16 08:25] VITALS: BP 119/63
--- NOTE | 2017-02-16 09:33 | NUR ---
Status Pt is alert and oriented x 3. Has flat, but cooperative and pleasant affect when approached. Denies depression, anxiety, hallucinations, and thoughts of hurting others. When asked why she won't take her other prescribed meds, pt states, "I don't take those." Sits in recliner and is seen with eyes closed, smiling, talking to self or someone not there. When asked who she is talking to, affect immediately goes flat and pt denies talking.
[2017-02-16 19:48] VITALS: BP 124/64
[2017-02-16] MEDS: ZOCOR PO SCH (20:46)
[2017-02-16] MEDS: ZYPREXA ZYDIS SL SCH (20:46)
--- NOTE | 2017-02-16 20:47 | NUR ---
medications Patient refused all HS meds, RN notified
[2017-02-17] MEDS ORDERED: SYNTHROID ONE (04:03)
[2017-02-17] MEDS: SYNTHROID PO SCH (06:04)
--- NOTE | 2017-02-17 07:20 | NUR ---
BEHAVIORS PT. WAS IN HER BR YELLING LOUDLY , IF ARGUING WITH SOMEONE NOT THERE .
[2017-02-17 08:13] VITALS: BP 117/70
--- NOTE | 2017-02-17 08:49 | NUR ---
BEHAVIOR NOTE: Patient is quiet and cooperative. Answers questions when asked but doesn't initiate conversations. Patient denies Depression, Anxiety, Suicidal thoughts, and hallucinations auditory/visual. Patient became angry when asked about episode last night when she was yelling and talking to herself in the bathroom. She stated "I wasn't talking to myself !". Patient continues to not take her medications and plans for possible discharge back to nursing is this week.
[2017-02-17] MEDS: ZESTRIL PO SCH (09:00)
[2017-02-17] MEDS: CELEXA PO SCH (09:00)
[2017-02-17] MEDS: COGENTIN PO SCH ×2 (09:00→20:24)
[2017-02-17] MEDS: ZYPREXA ZYDIS SL SCH (20:24)
[2017-02-17] MEDS: ZOCOR PO SCH (20:24)
[2017-02-17 20:29] VITALS: BP 108/64
--- NOTE | 2017-02-17 21:04 | NUR ---
medications Patient refused HS abimbola, RN notified
--- NOTE | 2017-02-17 21:58 | PNH ---
DATE: 02/17/2017 PSYCHIATRIC PROGRESS NOTE: TIME: 3:00-3:20. HISTORY OF PRESENT ILLNESS: The patient is an elderly female admitted from a local [facility] with profound psychosis carrying a diagnosis of schizophrenia. Active auditory hallucinations, which are continuous, lability, threatening behavior, ideas of reference, thought broadcasting and insertion, paranoia, delusional thoughts, some depressive symptoms with depressed mood, disturbed sleep, appetite, energy and concentration. The patient continues to have active and ongoing auditory and visual hallucinations, arguing with herself in the bathroom, yelling, screaming. She was given 1 dose of Invega . GASTROINTESTINAL: No nausea, vomiting, diarrhea or constipation. GENITOURINARY: No difficulty with urination. NEUROLOGIC: Normal. ENDOCRINE: Normal. MUSCULOSKELETAL: No muscle pain. EXTREMITIES: No swelling or edema. MENTAL STATUS EXAMINATION: Reveals an alert female with decreased psychomotor activity. Concentration and memory decreased. Speech and language are normal. Orientation intact. Mood is assessed as mildly depressed. Affect constricted. Insight and judgment are poor. Thought is illogical, positive delusional thought with active auditory and visual hallucinations. ASSESSMENT AND PLAN: DIAGNOSES: AXIS I: Schizophrenia, chronic, paranoid type with acute exacerbation. AXIS II: Deferred. AXIS III: Refer to past medical history. AXIS IV: Stress of mental illness. AXIS V: Current global assessment of functioning of 25. TREATMENT PLAN: 1. This patient was admitted involuntarily to the [facility] representing a risk or danger to herself and other individuals. 2. She has been placed on medication, Invega 156 mg IM. 3. She is to participate in groups, therapies and activities. 4. She will be given a repeat injection of Invega on Friday with discharge likely happening shortly thereafter if she shows a decrease in psychotic symptoms. Yonny Aceves MD DR: JOHANNA/mallika JOB# [id number]
[2017-02-18] MEDS ORDERED: SYNTHROID ONE (03:49)
[2017-02-18] MEDS: SYNTHROID PO SCH (05:50)
[2017-02-18 07:00] VITALS: BP 110/68
[2017-02-18 07:40] VITALS: BP 110/68
[2017-02-18] MEDS: COGENTIN PO SCH ×2 (07:43→20:53)
[2017-02-18] MEDS: CELEXA PO SCH (07:43)
[2017-02-18] MEDS: ZESTRIL PO SCH (07:43)
--- NOTE | 2017-02-18 09:00 | NUR ---
MEDICATIONS PT REFUSED MORNING MEDS THIS MORNING. JUST SAID THAT DOES NOT NEED THEM BECAUSE NOT SICK. WAS POLITE WHEN REFUSED THEM. RN IS AWARE OF REFUSAL
[2017-02-18 20:31] VITALS: BP 111/61
[2017-02-18] MEDS: ZOCOR PO SCH (20:54)
[2017-02-18] MEDS: ZYPREXA ZYDIS SL SCH (20:54)
--- NOTE | 2017-02-18 20:54 | NUR ---
medications Patient refused HS medications, RN notiied
--- NOTE | 2017-02-18 23:50 | NUR ---
BEHAVIORS Patient in room talking to someone that not there, patient slammed door and tried to lock it, explained to patient that the door can not be closed all the way shut.
[2017-02-19] MEDS ORDERED: SYNTHROID ONE (03:28)
[2017-02-19] MEDS: SYNTHROID PO SCH (05:56)
[2017-02-19] MEDS: CELEXA PO SCH (07:31)
[2017-02-19] MEDS: ZESTRIL PO SCH (07:31)
[2017-02-19] MEDS: COGENTIN PO SCH ×2 (07:31→20:31)
--- NOTE | 2017-02-19 07:31 | NUR ---
MEDICATIONS WHEN PT ASKED IF WAS GOING TO TAKE MEDS TODAY PT SAID NO SHE DID NOT NEED MEDS SHE WAS NO SICK. PT WAS POLITE AND QUIET WHEN SAID SHE DID NOT WANT MEDICATIONS. RN IS AWARE.
[2017-02-19 07:40] VITALS: BP 110/63
--- NOTE | 2017-02-19 10:05 | NUR ---
Tx team Pt was seen by Dr. Aceves and tx team this A.M. Plans for pt to receive Invega IM injection on January. Pt continues to deny having hallucinations despite being overheard and seen talking to people not there. Continues to have flat affect and short responses. Refusing PO medications, but has not been disruptive.
--- NOTE | 2017-02-19 13:09 | PNH ---
DATE: 02/19/2017 PSYCHIATRIC PROGRESS NOTE TIME: 8:40-9:00. HISTORY OF PRESENT ILLNESS: The patient is a 61-year-old female with a very long history of schizophrenia, presenting on this occasion with schizophrenia, chronic paranoid in type with acute exacerbation. The patient profoundly psychotic, auditory hallucinations, yelling, screaming, had voices, ideas of reference, thought broadcasting and insertion, delusional thought and paranoia. She has been given 1 injection of Invega and has refused all other medications. She remains psychotic and is a candidate for ongoing treatment at this time. OBJECTIVE: VITAL SIGNS: Temperature 98.2, pulse 63, respirations 16, oxygen saturation 95% and blood pressure 110/63. REVIEW OF SYSTEMS: HEENT: Normal. RESPIRATORY: No shortness of breath, coughing or wheezing. CARDIAC: No chest pain or palpitations. GASTROINTESTINAL: No nausea, vomiting, diarrhea or constipation. GENITOURINARY: No difficulty with urination. MUSCULOSKELETAL: No muscle pain. EXTREMITIES: No swelling or edema. NEUROLOGIC: Normal. ENDOCRINE: Normal. MENTAL STATUS EXAMINATION: Reveals an alert female with increased psychomotor activity. Concentration and memory are intact. Speech and language are normal. Orientation is full. Intelligence is average. Mood assessed as somewhat depressed. Affect constricted. Insight and judgment are poor. Thought is illogical, positive delusional thought with active auditory and visual hallucinations. ASSESSMENT AND PLAN: DIAGNOSES: AXIS I: Schizophrenia. AXIS II: Deferred. AXIS III: Refer to past medical history. AXIS IV: Stress of mental illness. AXIS V: Current global assessment of functioning of 20. TREATMENT PLAN: This patient has received 1 shot of Invega and will receive another injection of Invega likely of next week. We are working diligently trying to get her to take oral medication, which she has not agreed to do at this time and she will be discharged to an outpatient setting or care home setting when it is felt she no longer represents a risk or danger to herself or others. Yonny Aceves MD DR: JOHANNA/mallika JOB# [id number]
[2017-02-19 14:34] LABS: CALCIUM 9.5 mg/dL (8.4-10.5); CARBON DIOXIDE 29.4 mmol/L (20.0-32)
[2017-02-19] MEDS ORDERED: ZOCOR ONE (18:29)
[2017-02-19] MEDS ORDERED: COGENTIN ONE (18:29)
[2017-02-19] MEDS ORDERED: ZYPREXA ZYDIS ONE (18:30)
[2017-02-19 20:28] VITALS: BP 102/68
[2017-02-19] MEDS: ZOCOR PO SCH (20:31)
[2017-02-19] MEDS: ZYPREXA ZYDIS SL SCH (20:32)
--- NOTE | 2017-02-19 20:35 | NUR ---
medications after scaning meds and taking them from packaging, pt refused to take stated that she doesnt take medication. medications were wasted.
[2017-02-20] MEDS ORDERED: SYNTHROID ONE (04:14)
[2017-02-20] MEDS: SYNTHROID PO SCH (06:17)
[2017-02-20 07:38] VITALS: BP 92/63
[2017-02-20] MEDS: COGENTIN PO SCH ×2 (08:09→21:00)
[2017-02-20] MEDS: ZESTRIL PO SCH (08:09)
[2017-02-20] MEDS: CELEXA PO SCH (08:09)
--- NOTE | 2017-02-20 08:10 | NUR ---
AM MEDS PT POLITELY REFUSED MORNING MEDS. STATES THAT IS NOT SICK AND DOES NOT NEED ANY MEDS. RN IS AWARE OF REFUSAL OF MEDS.
--- NOTE | 2017-02-20 10:21 | NUR ---
Status Pt is alert and oriented x 3. Has pleasant, bright affect this A.M. Responds appropriately when approached. Denies depressive symptoms and hallucinations. Has been seen talking to someone not there while sitting in day room. Cooperative with ADLs and participating in self-care with prompting.
[2017-02-20 19:02] VITALS: BP 111/78
[2017-02-20] MEDS: ZYPREXA ZYDIS SL SCH (21:00)
[2017-02-20] MEDS: ZOCOR PO SCH (21:00)
--- NOTE | 2017-02-21 00:49 | NUR ---
behaviors Pt. oriented times three and denies depression ,anxiety and pain.Attended group quiet but responds to approach. Did not initiate interaction. Pt. refused medications tonight.
[2017-02-21] MEDS: SYNTHROID PO SCH (06:14)
[2017-02-21 07:30] VITALS: BP 108/68
[2017-02-21] MEDS: ZESTRIL PO SCH (09:00)
[2017-02-21] MEDS: COGENTIN PO SCH ×2 (09:00→20:44)
[2017-02-21] MEDS: CELEXA PO SCH (09:00)
--- NOTE | 2017-02-21 18:22 | NUR ---
BEHAVIOR NOTE: Patient has been calm and cooperative. She has sat in silence with eyes closed at times with lips moving and smiling. She has been helpful and kind to staff and other patients.
[2017-02-21 19:51] VITALS: BP 98/53
[2017-02-21] MEDS: ZOCOR PO SCH (20:44)
[2017-02-21] MEDS: ZYPREXA ZYDIS SL SCH (20:44)
[2017-02-21 20:50] VITALS: BP 113/66
--- NOTE | 2017-02-21 22:10 | PNH ---
DATE: 02/21/2017 PSYCHIATRIC PROGRESS NOTE TIME: 11:20-11:40. HISTORY OF PRESENT ILLNESS: The patient is a very sick psychotic patient with schizophrenia who had been refusing food, water and medication. Active auditory hallucinations, delusional thought, ideas of reference, thought broadcasting and insertion and paranoia. She has received an injection of Invega on one occasion and will be receiving another one soon. She does remain quite symptomatic and psychotic and is appropriate for ongoing hospitalization currently. OBJECTIVE: VITAL SIGNS: Blood pressure 108/68, pulse 65, respirations 18 and temperature 98.3. REVIEW OF SYSTEMS: HEENT: Normal. RESPIRATORY: No shortness of breath, coughing or wheezing. CARDIAC: No chest pain or palpitations. GASTROINTESTINAL: No nausea, vomiting, diarrhea or constipation. GENITOURINARY: No difficulty with urination. MUSCULOSKELETAL: No muscle pain. EXTREMITIES: No swelling or edema. NEUROLOGIC: Normal. ENDOCRINE: Normal. MENTAL STATUS EXAMINATION: Reveals an alert female with decreased psychomotor activity. Concentration and memory are intact. Speech and language are normal. Orientation is full. Intelligence is average. Mood assessed as somewhat depressed. Affect constricted. Insight and judgment are poor. Thought is illogical, positive delusional thought with active and ongoing auditory and visual hallucinations. ASSESSMENT AND PLAN: DIAGNOSES: AXIS I: Schizophrenia. AXIS II: Deferred. AXIS III: Refer to past medical history. AXIS IV: Stress of mental illness. AXIS V: Current global assessment of functioning of 20. TREATMENT PLAN: 1. This patient was admitted involuntarily to [facility] by the court representing clear danger to herself and other individuals. 2. She has been given an injection of Invega at this time and will get a repeat injection soon. 3. She is to participate in groups, therapies and activities. 4. She will be discharged back to an outpatient setting when it is felt she no longer represents a risk or danger to others. Yonny Aceves MD DR: JOHANNA/mallika JOB# [id number]
--- NOTE | 2017-02-21 22:12 | NUR ---
medications Patient refused HS meds RN notified
[2017-02-22] MEDS ORDERED: SYNTHROID ONE (03:31)
[2017-02-22] MEDS: SYNTHROID PO SCH ×2 (05:31→06:03)
--- NOTE | 2017-02-22 06:03 | NUR ---
medications Patient refused AM levothyroxine, RN notified
[2017-02-22 07:00] VITALS: BP 120/71
[2017-02-22] MEDS: COGENTIN PO SCH ×3 (08:39→21:00)
[2017-02-22] MEDS: CELEXA PO SCH (08:39)
[2017-02-22] MEDS: ZESTRIL PO SCH (08:39)
--- NOTE | 2017-02-22 16:06 | NUR ---
BEHAVIOR NOTE: Patient has sat in silence in the day room and has closed eyes, smiling and and touching herself on her arms and lips moving as if mumbling to self. Patient continues to refuse to take medications as ordered by MD.
[2017-02-22 20:13] VITALS: BP 101/59
[2017-02-22] MEDS: ZYPREXA ZYDIS SL SCH (20:29)
[2017-02-22] MEDS: ZOCOR PO SCH ×2 (20:31→21:00)
--- NOTE | 2017-02-22 20:32 | NUR ---
medications Patient refused HS medications, RN notified
[2017-02-23] MEDS: ZYPREXA ZYDIS SL SCH (04:48)
[2017-02-23] MEDS: SYNTHROID PO SCH ×2 (05:52→06:30)
--- NOTE | 2017-02-23 05:53 | NUR ---
medications Patient refused AM levothyroxine, RN notified
[2017-02-23 07:21] VITALS: BP 127/80
[2017-02-23] MEDS: COGENTIN PO SCH ×3 (07:29→21:00)
[2017-02-23] MEDS: ZESTRIL PO SCH ×2 (07:30→09:00)
[2017-02-23] MEDS: CELEXA PO SCH ×3 (07:30→20:44)
[2017-02-23] MEDS: ZOCOR PO SCH ×2 (20:44→21:00)
--- NOTE | 2017-02-23 20:45 | NUR ---
medications Patient refused HS medications stated "I dont need them", RN notified
[2017-02-23 21:47] VITALS: BP 126/76
[2017-02-24] MEDS: SYNTHROID PO SCH ×2 (05:51→06:30)
--- NOTE | 2017-02-24 05:51 | NUR ---
medications patient refused AM levothyroxin, RN notified
[2017-02-24 07:30] VITALS: BP 129/65
[2017-02-24] MEDS: COGENTIN PO SCH ×2 (08:55→21:00)
[2017-02-24] MEDS: ZESTRIL PO SCH ×2 (08:56→09:00)
[2017-02-24] MEDS: CELEXA PO SCH ×2 (08:56→09:00)
--- NOTE | 2017-02-24 09:40 | NUR ---
Status Pt is alert and oriented x 3, has pleasant, cooperative affect this A.M. Pt cont to deny having schizophrenia and refuses all medications. Denies depression, anxiety, hallucinations, or thoughts of hurting others. Does not initiate interaction, but does respond appropriately when approached.
--- NOTE | 2017-02-24 15:58 | NUR ---
VSEE Pt was seen by Dr. Aceves via telemed, no new orders received @ this time. Plans for pt to receive IM invega on 02/27/17 and discharge 02/28/17.
[2017-02-24] MEDS: ZYPREXA ZYDIS SL SCH (20:35)
[2017-02-24 20:47] VITALS: BP 93/60
[2017-02-24] MEDS: ZOCOR PO SCH (21:00)
--- NOTE | 2017-02-24 21:45 | PNH ---
DATE: 02/24/2017 PSYCHIATRIC PROGRESS NOTE TIME: 4:00-4:20. HISTORY OF PRESENT ILLNESS: This patient is a 61-year-old female with a long history of schizophrenia. The patient presented on this occasion with profound psychotic symptoms, with delusional thought, positive auditory and visual hallucinations, paranoia, ideas of reference, thought broadcasting and insertion with some depressive symptoms with depressed mood, disturbances in sleep, appetite, energy and concentration. The patient is not compliant with any treatment plan whatsoever or not taking medications, not eating, not drinking. The patient has resumed consuming food; however, she will not take her medication. She has received Invega injection on one occasion. She remains quite psychotic and is to receive another injection of Invega on . OBJECTIVE: VITAL SIGNS: Temperature 98.1, pulse 60, respirations 20, oxygen saturation 96% and blood pressure 129/65. REVIEW OF SYSTEMS: HEENT: Normal. RESPIRATORY: No shortness of breath, coughing or wheezing. CARDIAC: No chest pain or palpitations. GASTROINTESTINAL: No nausea, vomiting, diarrhea or constipation. GENITOURINARY: No difficulty with urination. MUSCULOSKELETAL: No muscle pain. EXTREMITIES: No swelling or edema. ENDOCRINE: Normal. NEUROLOGIC: Normal. MENTAL STATUS EXAMINATION: Reveals an alert female. Decreased psychomotor activity. Concentration and memory are intact. Speech and language are normal. Orientation is full. Intelligence is average. Mood assessed as depressed. Affect constricted. Insight and judgment are poor. Thought is illogical, positive delusional thought with auditory and visual hallucinations. ASSESSMENT AND PLAN: DIAGNOSES: AXIS I: Schizophrenia. AXIS II: Deferred. AXIS III: Refer to past medical history. AXIS IV: Stress of mental illness. AXIS V: Current global assessment of functioning of 20. TREATMENT PLAN: 1. This patient was admitted involuntarily to the [facility] representing a risk to herself and other individuals. 2. She is refusing all medications and food at this point, although she has agreed to an injection of Invega on one occasion and is to receive another one on . 3. She is participating somewhat in therapies, groups and activities. 4. She will be discharged back to an outpatient setting when it is felt she no longer represents a risk or danger to herself or other individuals. Yonny Aceves MD DR: JOHANNA/mallika JOB# [id number]
[2017-02-25] MEDS: SYNTHROID PO SCH (06:30)
[2017-02-25 07:30] VITALS: BP 115/64
[2017-02-25] MEDS: CELEXA PO SCH (09:00)
[2017-02-25] MEDS: ZESTRIL PO SCH (09:00)
[2017-02-25] MEDS: COGENTIN PO SCH (09:00)
--- NOTE | 2017-02-25 13:22 | PCM.HP ---
History of Present Illness Reason for Visit: Schizophrenia exacerbation with psychosis 2/2 medication non- complianc History of Present Illness 61 y/o F with PMHx previous diagnosis of HTN (non-compliant with medications), Schizophrenia admitted for psychotic behavior, delusional thought, auditory and visual hallucinations, paranoia, ideas of reference, thought broadcasting and insertion, depression, and disturbed sleep, appetite, energy, and concentration. She does not comply with her psychiatric medications. She has no acute medical issues. Past Medical History Cardiac: HTN (Previous diagnosis. Pt is non-compliant with medications.) Past Surgical History: No pertinent hx Past Social History Smoke: No Alcohol: none Drugs: None Lives: Jail ([facility] Travel Hx EBOLA RISK:Travel to/contact w: No Is pt experiencing any Ebola s: No Review of Systems Constitutional: No: Fever, Chills, Sweats, Weakness, Malaise, Other Eyes: No: Pain, Vision change, Conjunctivae inflammation, Eyelid inflammation, Other, Redness ENT: No: Ear pain, Ear discharge, Nose pain, Nose discharge, Nose congestion, Mouth pain, Mouth swelling, Throat pain, Throat swelling, Other Respiratory: No: Cough, Dry, Shortness of breath, SOB with excertion, Wheezing , Hemoptysis, Pleuritic Pain, Sputum, Wheezing, Other Cardiovascular: No: Chest Pain, Palpitations, Orthopnea, Paroxysmal Noc. Dyspnea, Edema, Lt Headedness, Other Gastrointestinal: No: Nausea, Vomiting, Abdominal Pain, Diarrhea, Constipation , Melena, Hematochezia, Other Genitourinary: No Dysuria, No Frequency, No Incontinence, No Hematuria, No Retention, No Other Musculoskeletal: No: other, neck pain, shoulder pain, arm pain, back pain, hand pain, leg pain, foot pain Skin: No: Rash, Lesions, Jaundice, Bruising, Other Neurological: No: Weakness, Numbness, Incoordination, Change in speech, Confusion, Seizures, Other Allergies: Coded Allergies: No Known Allergies (Unverified , 01/21/17) Scheduled Benztropine Mesylate (Benztropine Mesylate), 0.5 MG PO BID, (Reported) Levothyroxine Sodium (Synthroid), 88 MCG PO DAILY, (Reported) Lisinopril (Lisinopril), 5 MG PO DAILY, (Reported) Pravastatin Sodium (Pravastatin Sodium), 40 MG PO HS, (Reported) VTE VTE Risk Total Score: 2 VTE Risk Score VTE Risk: Score 0-1 = Low Risk (Aggressive mobilization; early ambulation; no VTE prophylaxis required) Score 2: Moderate Risk (Intermittent/Pneumatic Compression Device OR Lovenox/Heparin/Coumadin) Score 3-4: High Risk (Intermittent/Pneumatic Compression Device AND Lovenox/Heparin/Coumadin) Score > or =5: Highest Risk (Intermittent/Pneumatic Compression Device AND Lovenox/Heparin/Coumadin) Antico:Hep/LMWH/Coum/Xarelto: No Mechanical device ordered: No VTE VTE Present on Admission: No Currently receiving anticoagul: No VTE Risk Total Score: 2 Exam Vital Signs Vital Signs Date Time Temp Pulse Resp B/P (MAP) Pulse Ox O2 Delivery O2 Flow Rate FiO2 02/25/17 07:30 98.0 64 20 115/64 (81) 94 Room Air General Appearance: Alert, Oriented X3, Cooperative, No acute distress, Other ( Bizarre behavior. Psychotic but calm.) HEENT: Atraumatic, PERRLA, EOMI, Mucous membr. moist/pink Respiratory: Clear to auscultation, Normal air movement Cardiovascular: Regular rate, Normal S1, Normal S2, No murmurs Abdominal: Normal bowel sounds, Soft, No tenderness, No hepatospenomegaly, No masses Extremities: No clubbing, No cyanosis, No edema, Normal pulses, No tenderness/ swelling Skin: No rash, No breakdown, No lesions Neuro: Normal gait, Normal speech, Strength at 5/5 X4 ext, Normal tone, Sensation intact, Cranial nerves 3-12 NL, Reflexes 2+ Psych/Mental Status: Other (+Psychotic, +Depressed.) Assessment/Plan Assessment/Plan Assessment/Plan Intake and Output 02/26/17 07:00 Intake Total 1422 ml Balance 1422 ml Intake Oral 1422 ml # Voids 2 Current Medications Medications (Trade) Dose Ordered Sig/Flip Route PRN Reason Start Time Stop Time Status Last Admin Dose Admin Risperidone (Risperdal) 1 mg BID PO 01/23/17 12:30 02/02/17 09:48 DC Citalopram Hydrobromide (Celexa) 10 mg DAILY PO 01/24/17 09:00 02/26/17 08:59 Haloperidol Lactate (Haldol) 2 mg Q4HR PRN IM AGITATION 01/23/17 12:30 02/25/17 12:29 DC Haloperidol (Haldol) 2 mg Q4HR PRN PO AGITATION 01/23/17 12:30 02/25/17 12:29 DC Lorazepam (Ativan) 0.5 mg Q4HR PRN IM ANXIETY 01/23/17 12:30 02/25/17 12:29 DC Lorazepam (Ativan) 0.5 mg Q4HR PRN PO ANXIETY 01/23/17 12:30 02/25/17 12:29 DC Benztropine Mesylate (Cogentin) 0.5 mg BID PO 01/23/17 21:00 02/25/17 20:59 02/19/17 20:31 Levothyroxine Sodium (Synthroid) 88 mcg ACB PO 01/24/17 06:30 02/26/17 06:29 02/20/17 06:17 Lisinopril (Zestril) 5 mg DAILY PO 01/24/17 09:00 02/26/17 08:59 Simvastatin (Zocor) 20 mg HS PO 01/23/17 21:00 02/25/17 20:59 02/19/17 20:31 Simvastatin (Zocor) 20 mg STK-MED ONCE .ROUTE 01/23/17 18:57 01/23/17 20:58 DC Benztropine Mesylate (Cogentin) 1 mg STK-MED ONCE .ROUTE 01/23/17 18:57 01/23/17 20:59 DC Levothyroxine Sodium (Synthroid) 88 mcg STK-MED ONCE .ROUTE 01/24/17 04:17 01/24/17 06:18 DC Olanzapine (Zyprexa Zydis) 10 mg HS SL 02/02/17 21:00 03/04/17 20:59 02/19/17 20:32 Non-Formulary Medication 1 ea OT ONCE IM 02/05/17 09:00 02/05/17 09:01 DC 02/05/17 09:47 Levothyroxine Sodium (Synthroid) 88 mcg STK-MED ONCE .ROUTE 02/12/17 03:58 02/12/17 05:59 DC Levothyroxine Sodium (Synthroid) 88 mcg STK-MED ONCE .ROUTE 02/13/17 03:38 02/13/17 05:39 DC Levothyroxine Sodium (Synthroid) 88 mcg STK-MED ONCE .ROUTE 02/09/17 09:40 02/13/17 07:59 DC Levothyroxine Sodium (Synthroid) 88 mcg STK-MED ONCE .ROUTE 02/11/17 06:25 02/13/17 07:59 DC Levothyroxine Sodium (Synthroid) 88 mcg STK-MED ONCE .ROUTE 02/14/17 03:34 02/14/17 05:36 DC Levothyroxine Sodium (Synthroid) 88 mcg STK-MED ONCE .ROUTE 02/15/17 04:07 02/15/17 06:09 DC Levothyroxine Sodium (Synthroid) 88 mcg STK-MED ONCE .ROUTE 02/16/17 04:06 02/16/17 06:06 DC Levothyroxine Sodium (Synthroid) 88 mcg STK-MED ONCE .ROUTE 02/17/17 04:03 02/17/17 06:04 DC Levothyroxine Sodium (Synthroid) 88 mcg STK-MED ONCE .ROUTE 02/18/17 03:49 02/18/17 05:50 DC Levothyroxine Sodium (Synthroid) 88 mcg STK-MED ONCE .ROUTE 02/19/17 03:28 02/19/17 05:29 DC Non-Formulary Medication 1 ea OT ONCE PO 02/27/17 09:00 02/27/17 09:01 Simvastatin (Zocor) 20 mg STK-MED ONCE .ROUTE 02/19/17 18:29 02/19/17 20:30 DC Benztropine Mesylate (Cogentin) 1 mg STK-MED ONCE .ROUTE 02/19/17 18:29 02/19/17 20:31 DC Olanzapine (Zyprexa Zydis) 5 mg STK-MED ONCE .ROUTE 02/19/17 18:30 02/19/17 20:31 DC Levothyroxine Sodium (Synthroid) 88 mcg STK-MED ONCE .ROUTE 02/20/17 04:14 02/20/17 06:15 DC Levothyroxine Sodium (Synthroid) 88 mcg STK-MED ONCE .ROUTE 02/22/17 03:31 02/22/17 05:31 DC Problems: (1) Non-compliance with treatment Status: Chronic ICD Code: Z91.19 - Patient's noncompliance with other medical treatment and regimen SNOMED: 7300555 (2) Schizophrenia Status: Chronic ICD Code: F20.9 - Schizophrenia, unspecified SNOMED: 90146562 Patient History: Unknown 32 MOTHER 33 FATHER 19 CHILD 19 CHILD Problem Qualifiers (1) Schizophrenia: Schizophrenia type: paranoid schizophrenia Qualified Codes: F20.0 - Paranoid schizophrenia KARINA MARIANO MD Feb 25, 2017 13:22
[2017-02-25 19:40] VITALS: BP 113/59
[2017-02-25] MEDS: ZYPREXA ZYDIS SL SCH (20:39)
--- NOTE | 2017-02-26 01:14 | NUR ---
BEHAVIORS PT. ORIENTED TIMES THREE AND DENIES ANXIETY ,DEPRESSION SI AND PAIN. ENCOURAGED PT. TO ATTEND GROUP BUT SHE DECLINED BUT DID COME TO DR ,ATE SNACKS THEN WENT BACK TO BED. DID NOT INITIATE INTERACTION. DENIES HALLUCINATIONS TONIGHT. REFUSED HS MEDICATIONS.
[2017-02-26] MEDS: SYNTHROID PO SCH (06:16)
[2017-02-26 06:55] VITALS: BP 127/72
[2017-02-26] MEDS: ZESTRIL PO SCH ×2 (08:24→09:00)
[2017-02-26] MEDS: CELEXA PO SCH ×2 (08:24→09:00)
[2017-02-26] MEDS ORDERED: CITA10TA8 PO (09:18)
[2017-02-26] MEDS ORDERED: OLAN5TAB5 SL (09:19)
--- NOTE | 2017-02-26 11:36 | NUR ---
DISCHARGE PLAN: SW SPOKE TO PT REGARDING PLAN TO DC BACK TO [facility] ON FRIDAY AFTER HER INJECTION ON FRIDAY. PT INFORMED THIS WORKER THAT SHE LIVED IN HER OWN HOUSE BEFORE COMING HERE AND SHE PLANS TO GO BACK HOME TO HER HOUSE. SW ASKED PT IF SHE REMEMBERED TALKING WITH THIS WORKER ON THE DAY THAT SHE CAME FOR WHICH SHE TOLD THIS WORKER SHE WAS FORCED INTO A [facility]. PT RESPONDED THAT SHE DOES REMEMBER THAT AND THAT HER [id number], MAXIMINO WILSON IS THE INDIVIDUAL THAT SIGNED "[employer]" FORCING HER IN THERE. SW ASKED PT WHAT HER ADDRESS WAS IN [place] AND PT GOT VERY DEFENSIVE STATING THAT THIS WORKER DON'T NEED TO KNOW THAT INFORMATION. SW TOLD PT THAT I NEED THE ADDRESS SO THAT I COULD HELP HER FIND THE RIGHT PERSON TO TALK TO IN THE [facility] SO THAT SHE CAN DISCHARGE FROM THE [facility] BACK TO HER HOUSE BECAUSE PT'S GO BACK TO THE FACILITY FROM WHICH THEY CAME BECAUSE THIS IS A PSYCHIATRIC UNIT. PT INFORMED THIS WORKER THAT SHE DIDN'T KNOW THAT THIS WAS A PSYCHIATRIC HOSPITAL AND PT STORMED OUT OF ROOM YELLING, "IM NOT GOING BACK THERE!" SW WILL TRY TO TALK TO PT AGAIN AT A LATER TIME. PHONE CALL PLACED TO DAUGHTER FOR ASSISTANCE AND INFORMATION. SS TO FOLLOW.
--- NOTE | 2017-02-26 11:52 | NUR ---
BEHAVIOR NOTE: Patient continues to not take any medications. She is scheduled for Invega injection tomorrow and plans for discharge back to halfway Friday. Patient continues to believe that she is not mentally ill and that she does not want to live at the halfway. She is alert and oriented x3. Patient sits quietly and mumbles to self smiling with eyes closed gently rubbing her arms. She has not been combative towards staff or other patients and has at times been helpful and caring .
--- NOTE | 2017-02-26 12:12 | NUR ---
FAMILY CONTACT: FAY SPOKE TO DAUGHTERPALMA TO INFORM OF THE PREVIOUS NOTE. DAUGHTER STATES PT HAS NOT HAD A HOUSE SINCE 1974 AND SHE DOES NOT HAVE AN APARTMENT AT THIS TIME. DAUGHTER STATES THAT SHE IS HER POA AND THE INDIVIDUAL THAT SIGNED HER INTO THE DETENTION IN [place]. DRISS PLANS TO CALL PT TODAY TO DISCUSS THE PLAN WITH HER. DRISS ALSO PLANS TO CONTACT HER BRAND MANAGER TO GET AN EMERGENCY GUARDIANSHIP AND WILL CALL HER BROTHER, MARGARET WHO ALSO HAS POA. DRISS STATES THAT MARGARET HAS BEEN ABLE TO REASON WITH PT THUS FAR AND WILL DO WHAT HE SAYS MORE THAN SHE WILL WITH ANYONE. DRISS STATES THAT SHE HAS NOT HAD ANY LUCK GETTING PT INTO [facility] AND THE PSYCHIATRISTS IN [place] REFUSE TO TREAT HER ON AN INDIVIDUAL BASIS BECAUSE OF THE NONCOMPLIANCE AND SYMPTOMS THAT LED TO THE INABILITY TO CARE FOR HERSELF. DRISS STATES THAT SCRAP BUNCH MAKER GRISELDA IN [facility] TOLD HER THAT THE GUARDIANSHIP HAD TO BE COMPLETED DUE TO THE SEVERITY OF HER SYMPTOMS AND THE NUMBER OF TIMES HE HAS HAD TO SIGN COURT COMMITTALS IN ORDER TO GET PT THE HELP THAT SHE NEEDS; THEREFORE, DRISS VERBALIZES THAT THE GUARDIANSHIP PROCESS WILL NOT BE A PROBLEM. SS TO FOLLOW.
--- NOTE | 2017-02-26 14:34 | NUR ---
FAMILY CONTACT: PALMA, PT'S DAUGHTER CALLED THIS WORKER TO INFORM THAT SHE HAS AN APPOINTMENT WITH HER PROJECTION TECHNICIAN FRIDAY AT 1000 TO COMPLETE THE EMERGENCY GUARDIANSHIP. PALMA CONTACTED THE [facility] WITH THIS INFORMATION FOR WHICH THEY WOULD LIKE TO WAIT UNTIL SHE HAS THE GUARDIANSHIP PAPERS IN HAND BEFORE THEY PICK PT UP FROM OUR FACILITY. PALMA STATES THE ONLY PROBLEM IS THAT SUPPLY CHAIN PROGRAM MANAGER JESUS IS SUPPOSE TO BE OUT OF TOWN AND IF HER PROJECTION TECHNICIAN IS UNABLE TO GET A HOLD OF HIM THEN IT MAY BE FRIDAY BEFORE SHE CAN GET THE SUPPLY CHAIN PROGRAM MANAGER TO SIGN THE DOCUMENTS. STEPH NIX INFORMED.
[2017-02-26 20:34] VITALS: BP 101/68
[2017-02-26] MEDS: ZYPREXA ZYDIS SL SCH (21:00)
--- NOTE | 2017-02-26 21:24 | PNH ---
DATE: 02/26/2017 PSYCHIATRIC PROGRESS NOTE TIME: 8:40-9:00. HISTORY OF PRESENT ILLNESS: The patient is a 61-year-old female admitted from a local alf with extreme psychotic symptoms, does have a diagnosis of schizophrenia. She has ongoing active auditory hallucinations, delusional thought, ideas of reference, paranoia, refusing medications. She is eating and drinking at this point however. She has received 1 injection of Invega and is to receive another injection of Invega tomorrow. After that, she likely will be discharged back to the alf setting if she is showing continued improvement. OBJECTIVE: VITAL SIGNS: Temperature 98.4, pulse 69, respirations 18, oxygen saturation 92% and blood pressure 127/72. REVIEW OF SYSTEMS: HEENT: Normal. RESPIRATORY: No shortness of breath, coughing or wheezing. CARDIAC: No chest pain or palpitations. GASTROINTESTINAL: No nausea, vomiting, diarrhea or constipation. GENITOURINARY: No difficulty with urination. EXTREMITIES: No swelling or edema. MUSCULOSKELETAL: No muscle pain. NEUROLOGIC: Normal. ENDOCRINE: Normal. MENTAL STATUS EXAMINATION: Reveals alert female with decreased psychomotor activity. Concentration and memory are intact. Speech and language are normal. Orientation is full. Intelligence is average. Mood assessed as mildly depressed. Affect constricted. Insight and judgment are poor. Thought is illogical, positive delusional thought with active psychotic symptoms. ASSESSMENT AND PLAN: DIAGNOSES: AXIS I: Schizophrenia. AXIS II: Deferred. AXIS III: Refer to past medical history. AXIS IV: Stress of mental illness. AXIS V: Current global assessment of functioning of 25. TREATMENT PLAN: 1. This patient was admitted due to representing a risk or danger to herself and other individuals. 2. She has been placed on medication, Invega IM 156 mg, which is to be repeated on . She is taking no other medications and she is eating and drinking at this point. 3. She is participating in groups, therapies and activities. 4. She will be discharged on Friday to a alf setting if she continues to show improvement. Yonny Aceves MD DR: JOHANNA/mallika JOB# [id number]
[2017-02-27 07:04] VITALS: BP 123/77
[2017-02-27] MEDS: ZESTRIL PO SCH (07:17)
[2017-02-27] MEDS: CELEXA PO SCH (07:17)
--- NOTE | 2017-02-27 07:18 | NUR ---
MEDICATIONS PT REFUSED MORNING MEDS THIS MORNING. JUST SAID THAT DOES NOT NEED THEM BECAUSE NOT SICK. WAS POLITE WHEN REFUSED THEM. PT WILL RECEIVE INVEGA INJECTION THIS AM. RN IS AWARE OF REFUSAL
[2017-02-27] MEDS ORDERED: NON-FORMULARY MEDICATION 1 EA EA IM ONE (09:00)
--- NOTE | 2017-02-27 09:02 | NUR ---
BEHAVIOR NOTE: Patient is scheduled to get Invega injection today and plans to discharge back to the senior living tomorrow. Patient is calm and pleasant and is sitting in the day room quiet and mumbling to self but denies auditory/visual hallucinations. She has poor insight of disease process and believes that she is not sick and does not need psychiatric medications. Patient continues to refuse all medications medical and psychiatric at this time.
--- NOTE | 2017-02-27 09:55 | NUR ---
INVEGA INVEGA GIVEN IN THE RIGHT GLUTEAL. PT WAS VERY COOPERATIVE ABOUT THE INJECTION. DID NOT GIVE ANY OBJECTIONS TO TAKING THE INJECTION. WILL MONITOR.
--- NOTE | 2017-02-27 18:58 | PRM.DC ---
Discharge Summary Date of Arrival on Unit: Jan 23, 2017 Reason for Visit: Schizophrenia exacerbation with psychosis 2/2 medication non- complianc Patient History: Unknown 32 MOTHER 33 FATHER 19 CHILD 19 CHILD History Present Illness: Scheduled Benztropine Mesylate (Benztropine Mesylate), 0.5 MG PO BID, (Reported) Citalopram Hydrobromide (Celexa), 10 MG PO DAILY Levothyroxine Sodium (Synthroid), 88 MCG PO DAILY, (Reported) Lisinopril (Lisinopril), 5 MG PO DAILY, (Reported) Olanzapine (Zyprexa Zydis), 10 MG SL HS Pravastatin Sodium (Pravastatin Sodium), 40 MG PO HS, (Reported) Sepsis Evaluation @ Discharge Course Blood Pressure Systolic: 123 Blood Pressure Diastolic: 77 Blood Pressure Mean: 92 Plan Problems: (1) Schizophrenia Status: Chronic ICD Code: F20.9 - Schizophrenia, unspecified SNOMED: 16537940 (2) Non-compliance with treatment Status: Chronic ICD Code: Z91.19 - Patient's noncompliance with other medical treatment and regimen SNOMED: 3026103 Problem Qualifiers (1) Schizophrenia: Schizophrenia type: paranoid schizophrenia Qualified Codes: F20.0 - Paranoid schizophrenia KARINA MARIANO MD Feb 27, 2017 18:58
[2017-02-27 19:18] VITALS: BP 113/57
[2017-02-27] MEDS: ZYPREXA ZYDIS SL SCH (20:30)
--- NOTE | 2017-02-27 20:31 | NUR ---
medications Patient refused HS abimbola, STEPH notiied
[2017-02-28 08:20] VITALS: BP 125/81
[2017-02-28] MEDS: ZESTRIL PO SCH (08:42)
[2017-02-28] MEDS: CELEXA PO SCH (08:42)
--- NOTE | 2017-02-28 09:05 | NUR ---
Status Pt is alert and oriented x 3. Has pleasant affect this A.M., but is withdrawn. Denies depressive symptoms. Denies having psychiatric or thyroid problems, refuses taking PO meds. Otherwise, pt is cooperative with tx. Pt observed to be hallucinating, sitting in chair with eyes closed, smiling, and talking to someone. Pt continues to deny hallucinations when asked who she is talking to.
--- NOTE | 2017-02-28 10:46 | NUR ---
VSEE Pt was seen by Dr. Alaniz via telemed. Received orders for lab draw, see EMAR. Plans for discharge TBA.
--- NOTE | 2017-02-28 10:52 | PRM.PN ---
Mood: UP AND DOWN, DENIES FEELING DEPRESSED Sleep: SLEEPING WELL AT NIGHT Appetite: NORMAL APPETITE Suidical thoughts: NONE REPORTED Homicidal thoughts: NONE REPORTED Recent stressors: STRESS OF MENTAL ILLNESS Family support: DAUGHTER IN [place] Aggressive Behavior: NONE REPORTED RECENTLY Ability to Perform ADL'sc: ABLE TO DO HER ADLS Psychotic sympstoms: PARANOIA, HALLUCINATIONS, NEGATIVE SYMPTOMS, POOR INSIGHT Manic Symptoms: NONE RPEORTED Living situation: [facility]IVES AT [facility] IN [place] Illicit Drug usec: NONE REPORTED Alcoholo use: NONE REPORTED Tobacco use: NONE REPORTED Family,PT,Surgical,&Current HX: Anxity Symptoms: MODERATE ANXIETY LEVEL Anger/Irritablility: LIMITED ANGER AND IRRITABILITY Muscle Strength & Tone: WNL Gait & Station: WNL Appearance: Well groomed/hygience, Casual attire, Normal weight, Appears age stated Attitude & Behaviour: Poor eye contact, Psychomotor retardation Mood & Affect: Flat, Constricted, Blunted Orientation: Fully oriented per interv Attention/Concentration: Fair attention, Fair concentration Speech: Reg rate/vol/rhyth/prosod Judgement/Insight: Poor judgement, Poor insight Thought Process: Linear/goal directed Language: Stateless Thought content/Abnormal/Psych: A/V Vaughan, Delusions Fund of Knowledge: WNL Associations: WNL/Normal Associations Memory (recent and remote): Gross int/not form assess Constitutional: None Neurological: None Psychiatric: Anxious, Psychosis [place] I: SCHIZOPHRENIA; GENERALIZED ANXIETY DISORDER; DEPRESSION [place] II: DEFERRED [place] III: REFER TO PMH/MEDICAL CHART [place] IV: STRESS OF MENTAL ILLNESS [place] V: GAF=30 TO 35 Assessment/Plan Assessment/Plan Assessment/Plan First Vital Signs Date Time Temp Pulse Resp B/P (MAP) Pulse Ox O2 Delivery O2 Flow Rate FiO2 01/23/17 12:40 97.2 78 18 110/67 (81) 92 Room Air Last Vital Signs Date Time Temp Pulse Resp B/P (MAP) Pulse Ox O2 Delivery O2 Flow Rate FiO2 02/28/17 08:20 98.6 92 18 125/81 (96) 93 Room Air THE PATIENT WAS SEEN BY DR. LAW VIA TELEMEDICINE EQUIPMENT (VSEE) ALONG WITH THE TREATMENT TEAM. THE PATIENT WAS SUPPOSED TO BE DISCHARGED TODAY. THE PATIENT IS STATING THAT SHE WILL NOT GO TO THE [facility]. THE PATIENT RECEIVED AN INVEGA SUSTENNA INJECTION 156MG IM YESTERDAY. SHE TOOK THE SHOT WITHOUT INCIDENT. THE PATIENT SLEPT 8.75 HOURS LAST NIGHT. THE PATIENT HAS A BEEN EATING WELL PER STAFF. THE PATIENT HAS NEGATIVE SYMPTOMS. THE PATIENT HAS POOR INSIGHT INTO HER ISSUES. THE PATIENT TAKES HER THYROID MEDICATION SOMETIMES. SHE REFUSES ALL OTHER ORAL MEDICATIONS. THE PATIENT HAS NOT BEEN A BEHAVIOR PROBLEM. SHE ISOLATES TO HER ROOM A LOT. THE PATIENT HAS ODD AND DELUSIONAL THINKING. ASSESSMENT: SCHIZOPHRENIA, PARANOID TYPE; GENERALIZED ANXIETY DISORDER; DEPRESSION PLAN: 1) CONTINUE [facility] [place] MANAGEMENT. DISCHARGE TO [facility] SOON DAUGHTER GETS GUARDIANSHIP. 2) CONTINUE CURRENT MEDICATIONS. CONTINUE TO ENCOURAGE THE PATIENT TO TAKE HER MEDICATIONS. Problems: (1) Schizophrenia Status: Chronic ICD Code: F20.9 - Schizophrenia, unspecified SNOMED: [id number] Patient History: Unknown 32 MOTHER 33 FATHER 19 CHILD 19 CHILD Problem Qualifiers (1) Schizophrenia: Schizophrenia type: paranoid schizophrenia Qualified Codes: F20.0 - Paranoid schizophrenia MOUNIKA LAW IV, MD Feb 28, 2017 10:52
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
--- NOTE | 2017-02-28 15:24 | NUR ---
Lab draw Pt has refused lab draw x 2. Gets angry with staff and slams door.
--- NOTE | 2017-02-28 15:40 | NUR ---
FAMILY CONTACT: SW RECEIVED CALL FROM PALMA, DAUGHTER STATING THAT SHE SPOKE TO [facility] AND THEY WILL TAKE PATIENT BACK WITHOUT THE GUARDIANSHIP. DAUGHTER STATES THAT NO ONE IN THE FAMILY WILL TAKE GUARDIANSHIP OVER HER AT THIS TIME. PALMA STATES THAT SHE SPOKE TO MOTHER WHO WAS VERY ANGRY AND HUNG UP ON HER; HOWEVER, SHE FEELS THAT SHE WILL GO WITH THEM BECAUSE SHE HAS ALWAYS MADE THE DECISION TO HAVE A ROOF OVER HER HEAD.
--- NOTE | 2017-02-28 15:46 | NUR ---
DISCHARGE PLAN: PT TO DC TODAY TO [facility]. FACILITY TO TRANSPORT TODAY AND PLAN TO LEAVE AT 1546. PASRR-1 COMPLETE AND IN CHART. [id number] COMPLETE.
--- NOTE | 2017-02-28 17:09 | NUR ---
Wound pic Pt refused to have discharge wound picture of left elbow. Stated, "There's nothing to take a picture of. There's nothing there."
--- NOTE | 2017-02-28 17:35 | NUR ---
Off unit Pt ambulated off unit alongside Obdulio Seals LVN and x 2 [facility] nurses. No distress noted, strong, steady gait.
[2017-02-28 17:36] VITALS: BP 125/81
--- NOTE | 2017-02-28 18:15 | NUR ---
Report Report called and given to SATHYA Salvador @ [facility].
[2017-02-28] MEDS ORDERED: ZOCOR PO SCH (21:00)
[2017-02-28] MEDS ORDERED: PRAVACHOL PO SCH (21:00)
[2017-02-28] MEDS ORDERED: COGENTIN PO SCH (21:00)
--- NOTE | 2017-02-28 22:47 | DSH ---
DATE OF DISCHARGE: 02/28/2017 HOSPITAL COURSE: The patient is a 61-year-old female with a history of schizophrenia, paranoid type. She has a long history of mental health problems. She came from [facility] where she was refusing her medications, refusing to eat, refusing to bathe or shower. She was stabilized on Invega Sustenna 156 mg IM monthly. She was given 2 doses while she was in the [facility]. She was given her last dose on 02/27/2017. She tolerated the shot fine. She would say that she would not want to take it, but then when approached, she would let the nurses to give her the shot. She was supposed to be taking Cogentin 0.5 mg p.o. b.i.d., Celexa 10 mg p.o. daily, Synthroid 88 mcg p.o. daily, lisinopril 5 mg p.o. daily, Zyprexa Zydis 10 mg p.o. at bedtime, and Pravastatin 20 mg p.o. at bedtime. She refused these medications most of the time. She would occasionally take the Synthroid. She was extremely paranoid and delusional. She denied suicidal or homicidal ideation. She was not a behavior problem. She was eating fine. She was sleeping well at night. She was taking all her medications. She was not a threat to harming herself or others. She just refuses her medications and is very paranoid about taking medications. She has a long history of schizophrenia. She was found to be stable to go back to the [facility]. Her daughter thought about getting guardianship, but decided against this. The patient was agreeable to going back to the [facility]. If she causes problems, she can be sent back to the [facility]. She seemed to tolerate Invega Sustenna medications fine. DISCHARGE DIAGNOSES: Schizophrenia, paranoid type; generalized anxiety disorder. DISCHARGE PLAN: 1. The patient is being discharged in stable condition to the [facility]. She is agreeable to going. Her daughter was agreeable with plan. 2. The patient will continue the above psychotropic medications. She will continue the Invega Sustenna shot 156 mg IM every month. Her last shot once again was on 02/27/2017. She tolerated the medications fine. She might benefit from a higher dose in the future. Mumtaz Alaniz IV MD DR: Rola JOB# [id number]
[2017-03-01] MEDS ORDERED: SYNTHROID PO SCH (06:30)
== END 2017-02-28 17:35 | DRG 885 ==
LOC: GP 10:55 → EEVIPCON 10:55
PROVIDERS: ADMIT Psychiatry & Neurology Psychiatry; ATTEND Psychiatry & Neurology Psychiatry
DX: F20.0 Paranoid schizophrenia (principal); F32.2 Major depressive disorder, single episode, severe without psychotic features; E03.9 Hypothyroidism, unspecified; I10 Essential (primary) hypertension; E78.5 Hyperlipidemia, unspecified; F41.1 Generalized anxiety disorder; G47.9 Sleep disorder, unspecified; Z53.29 Procedure and treatment not carried out because of patient's decision for other reasons; Z91.14 Patient's other noncompliance with medication regimen; Z79.899 Other long term (current) drug therapy; Z56.0 Unemployment, unspecified
CPT/HCPCS: 36415; 80048; 97003; 97150; 97166; 97168-GO; G8987; G8988